=== PATIENT | female | born 1975 | race American Indian/Alaskan Native ===

== ENCOUNTER 2019-07-21 12:43 | Emergency (ER) | payer MEDICAID ==
[2019-07-21] MEDS ORDERED: Sodium Chloride 0.9% 10 ML Syringe FLUSH PRN (12:47)
[2019-07-21 13:08] VITALS: BP 125/73; PULSE 99
[2019-07-21] MEDS ORDERED: GI Cocktail Oral Solution 30 ML PO ONE (13:24)
[2019-07-21 13:33] LABS: ANION GAP 9.9 mEq/L (7-13); CHLORIDE,CL 102 mmol/L (98-107); SODIUM,NA 139 mmol/L (136-145)
--- NOTE | 2019-07-21 13:44 | CR ---
EXAMINATION: Chest 1V Frontal SEX: Female AGE: 43 years CLINICAL HISTORY: 43-year-old obese female with chest pain. INTERPRETATION: External front desk monitor leads. No acute cardiopulmonary abnormality. 1. Normal cardiac silhouette without vascular congestion, cephalization of flow, alveolar edema or dependent pleural effusion. 2. No lung mass, hilar lymphadenopathy or focal lobar infiltrate. 3. No atelectasis/collapse. 4. No pneumothorax or pneumomediastinum. 5. Bony thorax unremarkable. No free subdiaphragmatic air.
--- NOTE | 2019-07-21 13:51 | EDM.PDOC ---
ED HPI GENERAL MEDICAL PROBLEM - General Chief Complaint: Chest Pain Stated Complaint: shortness of breath/pressure in chest Time Seen by Provider: 07/21/19 13:20 Source of Information: Reports: Patient, RN, RN Notes Reviewed History Limitations: Reports: No Limitations - History of Present Illness INITIAL COMMENTS - FREE TEXT/NARRATIVE: Patient presents to ER with complaint of epigastric pain radiating up into the chest, to the left shoulder. Patient states she feels burning up the mid chest and into the throat area. Patient states she was very concerned that it could be her heart. Patient states 3 days ago she hit her head on a metal bar on playground equipment while playing with her granddaughter. States since then she has had blurred vision on and off, headaches, and has been vomiting intermittently. Patient admits to IV meth use yesterday, as well as anxiety. Patient states she has had her gallbladder removed, and has had her tubes tied. Onset: Today, Sudden Epigastric Pain Score (Numeric/FACES): 10 - Related Data Allergies Allergy/AdvReac Type Severity Reaction Status Date / Time Penicillins Allergy Hives Verified 07/21/19 13:15 Home Meds: Home Meds . 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: Musculoskeletal History: Reports: Arthritis, Back Pain, Chronic Psychiatric History: Reports: Addiction - Past Surgical History GI Surgical History: Reports: Cholecystectomy Female Surgical History: Reports: Tubal Ligation Social & Family History - Family History Family Medical History: Noncontributory - Tobacco Use Smoking Status *Q: Current Every Day Smoker Years of Tobacco use: 10 Packs/Tins Daily: 1 - Caffeine Use Caffeine Use: Reports: Soda - Alcohol Use Days Per Week of Alcohol Use: 2 Number of Drinks Per Day: 1 Total Drinks Per Week: 2 - Recreational Drug Use Recreational Drug Use: Yes Drug Use in Last 12 Months: Yes Recreational Drug Type: Reports: Methamphetamine - Living Situation & Occupation Living situation: Reports: , with Family Occupation: Unemployed ED ROS GENERAL - Review of Systems Review Of Systems: Comprehensive ROS is negative, except as noted in HPI. ED EXAM, GENERAL - Physical Exam Exam: See Below Exam Limited By: No Limitations General Appearance: Alert, WD/WN, Anxious, Mild Distress Eye Exam: Bilateral Eye: EOMI, Normal Inspection Ears: Normal External Exam, Normal Canal, Hearing Grossly Normal, Normal TMs Nose: Normal Inspection Throat/Mouth: Normal Inspection, Normal Lips, Normal Teeth, Normal Gums, Normal Oropharynx, Normal Voice, No Airway Compromise Head: Atraumatic, Normocephalic, Other (scalp tenderness) Neck: Normal Inspection, Supple, Non-Tender, Full Range of Motion Respiratory/Chest: No Respiratory Distress, Lungs Clear, Normal Breath Sounds, No Accessory Muscle Use, Chest Non-Tender Cardiovascular: Normal Peripheral Pulses, Regular Rate, Rhythm, No Edema, No Gallop, No JVD, No Murmur, No Rub Peripheral Pulses: 2+: Radial (L), Radial (R) GI/Abdominal: Normal Bowel Sounds, Soft, Non-Tender, No Organomegaly, No Distention (Female) Exam: Deferred Rectal (Female) Exam: Deferred Back Exam: Normal Inspection, Full Range of Motion, NT Extremities: Normal Inspection, Normal Range of Motion, Non-Tender, Normal Capillary Refill, No Pedal Edema Neurological: Alert, Oriented, CN II-XII Intact, Normal Cognition, Normal Gait, Normal Reflexes, No Motor/Sensory Deficits Psychiatric: Normal Affect, Normal Mood, Anxious Skin Exam: Warm, Dry, Intact, Normal Color, No Rash Lymphatic: No Adenopathy Course - Vital Signs Last Recorded V/S: Last Vital Signs Temp 98.7 F 07/21/19 13:06 Pulse 99 07/21/19 13:06 Resp 14 07/21/19 13:06 BP 125/73 07/21/19 13:06 Pulse Ox 100 07/21/19 13:06 - Orders/Labs/Meds Orders: Active Orders 24 hr Category Date Time Status EKG Documentation Completion [RC] STAT Care 07/21/19 12:47 Active Peripheral IV Care [RC] . DIRECTED Care 07/21/19 12:48 Active DRUG SCREEN URINE BIORAD [URCHEM] Stat Lab 07/21/19 12:48 Ordered UA RFX ROSAS AND CULT IF INDIC [URIN] Stat Lab 07/21/19 12:48 Ordered Sodium Chloride 0.9% [Saline Flush] Med 07/21/19 12:47 Active 10 ml FLUSH ASDIRECTED PRN Peripheral IV Insertion Adult [OM.PC] Stat Oth 07/21/19 12:48 Ordered Medication Orders Sodium Chloride (Saline Flush) 10 ml FLUSH ASDIRECTED PRN PRN Reason: Keep Vein Open Labs: Laboratory Tests 07/21/19 07/21/19 Range/Units 13:04 13:04 WBC 9.3 (5.0-10.0) 10^3/uL RBC 4.60 (4.2-5.4) 10^6/uL Hgb 12.5 (12.0-16.0) g/dL Hct 38.6 (37.0-47.0) % MCV 83.9 (80-100) fL MCH 27.2 (27.0-34.0) pg MCHC 32.4 L (33.0-35.0) g/dL Plt Count 357 (150-450) 10^3/uL Neut % (Auto) 56.7 (42.2-75.2) % Lymph % (Auto) 32.5 (20.5-50.1) % [place] % (Auto) 6.3 (2-8) % Eos % (Auto) 4.2 H (1.0-3.0) % Baso % (Auto) 0.3 (0.0-1.0) % Sodium 139 (136-145) mmol/L Potassium 3.9 (3.5-5.1) mmol/L Chloride 102 (98-107) mmol/L Carbon Dioxide 31 (21-32) mmol/L Anion Gap 9.9 (7-13) mEq/L BUN 11 (7-18) mg/dL Creatinine 0.85 (0.55-1.02) mg/dL Est Cr Clr Drug Dosing 72.17 mL/min Estimated GFR (MDRD) > 60 BUN/Creatinine Ratio 12.9 (No establ ref range) Glucose 98 (74-99) mg/dL Calcium 9.0 (8.5-10.1) mg/dL Total Bilirubin 0.7 (0.2-1.0) mg/dL AST 27 (15-37) U/L ALT 80 H (14-59) U/L Alkaline Phosphatase 79 (46-116) U/L Troponin I < 0.017 (0.000-0.056) ng/mL B-Natriuretic Peptide < 5 (0-100) pg/ml Total Protein 7.4 (6.4-8.2) g/dL Albumin 3.5 (3.4-5.0) g/dL Globulin 3.9 Albumin/Globulin Ratio 0.9 Meds: Medications Generic Name Dose Route Start Last Admin Trade Name Freq PRN Reason Stop Dose Admin Sodium Chloride 10 ml 07/21/19 12:47 Saline Flush FLUSH ASDIRECTED PRN Keep Vein Open Discontinued Medications Generic Name Dose Route Start Last Admin Trade Name Freq PRN Reason Stop Dose Admin Al Hydroxide/Mg Hydroxide 30 ml 07/21/19 13:24 07/21/19 13:31 Gi Cocktail PO 07/21/19 13:25 30 ml ONETIME ONE Administration - Radiology Interpretation Free Text/Narrative:: Chest x-ray: 1. Normal cardiac silhouette without vascular congestion, cephalization of flow , alveolar edema or dependent pleural effusion. 2. No lung mass, hilar lymphadenopathy or focal lobar infiltrate. 3. No atelectasis/collapse. 4. No pneumothorax or pneumomediastinum. 5. Bony thorax unremarkable. No free subdiaphragmatic air. Head CT: No acute findings See rad report Departure - Departure Time of Disposition: 14:19 Disposition: Home, Self-Care 01 Reason for Transfer *Q: Other Condition: Fair Clinical Impression: Acid indigestion, Anxiety, Methamphetamine abuse Concussion Qualifiers: Encounter type: initial encounter Loss of consciousness presence/duration: without LOC Qualified Code(s): S06.0X0A - Concussion without loss of consciousness, initial encounter Instructions: Indigestion, [id number], Food Choices for Gastroesophageal Reflux Disease, Adult, Kstu-zy-Ruyo, Concussion, Adult, Ycyy-qo-Cqph, Heartburn , Ujpm-hm-Pwzi, Post-Concussion Syndrome, Tdmi-qg-Dzen, Head Injury, Adult, Easy -to-Read, Nonspecific Chest Pain, Adult, Tsea-[id number], Gastroesophageal Reflux Disease, Adult, [id number] Forms: ED Department Discharge Additional Instructions: Refrain from using meth Drink plenty of water Follow food choices to avoid acid reflux Obtain a primary care provider and follow up with them RX: Omeprazole Sepsis Event Note - Evaluation Sepsis Screening Result: No Definite Risk - Focused Exam Vital Signs: Vital Signs Temp Pulse Resp BP Pulse Ox 07/21/19 13:06 98.7 F 99 14 125/73 100 Date Exam was Performed: 07/21/19 Time Exam was Performed: 14:19 - My Orders Last 24 Hours: My Active Orders 07/21/19 12:47 EKG Documentation Completion [RC] STAT Sodium Chloride 0.9% [Saline Flush] 10 ml FLUSH ASDIRECTED PRN 07/21/19 12:48 Peripheral IV Care [RC] . DIRECTED DRUG SCREEN URINE BIORAD [URCHEM] Stat UA RFX ROSAS AND CULT IF INDIC [URIN] Stat Peripheral IV Insertion Adult [OM.PC] Stat - Assessment/Plan Last 24 Hours: My Active Orders 07/21/19 12:47 EKG Documentation Completion [RC] STAT Sodium Chloride 0.9% [Saline Flush] 10 ml FLUSH ASDIRECTED PRN 07/21/19 12:48 Peripheral IV Care [RC] . DIRECTED DRUG SCREEN URINE BIORAD [URCHEM] Stat UA RFX ROSAS AND CULT IF INDIC [URIN] Stat Peripheral IV Insertion Adult [OM.PC] Stat
--- NOTE | 2019-07-21 14:09 | CT ---
EXAMINATION: Head wo Cont SEX: Female AGE: 43 years CLINICAL HISTORY: 43-year-old 184 pound female smoker with headache, blurred vision and vomiting after trauma (hit head). Scan technique: Volume acquisition of data unenhanced CT scan of the head and brain obtained with patient lying supine on the Siemens multislice scanner [place], [place]. All data archived in the PACS system for storage, reformatting axial/sagittal/coronal planes and study (bone/brain windows). Interpretation: 1. Uniformly thick bony calvarium without sign of skull fracture, underlying brain contusion or epidural/subdural hematoma. 2. Symmetric clear pneumatization of the paranasal and mastoid sinuses. Nasal septum is straight in the midline. 3. No supratentorial or posterior fossa mass lesion. Mirror-image normal ventricles. No hydrocephalus. Normal brainstem. 4. No focal areas of ischemic infarct or encephalomalacia. No cysts. 5. No sign of acute intracerebral, intraventricular, or subarachnoid bleed. CONCLUSION: Negative unenhanced CT scan head and brain. No sign of fracture, brain contusion or epi/subdural hematoma.
== END 2019-07-21 14:28 | disposition home or self-care (01) ==
LOC: DL.ED 12:43
DX: S06.0X0A Concussion without loss of consciousness, initial encounter (principal); F41.9 Anxiety disorder, unspecified; F15.10 Other stimulant abuse, uncomplicated; F17.210 Nicotine dependence, cigarettes, uncomplicated; K21.9 Gastro-esophageal reflux disease without esophagitis; Z88.0 Allergy status to penicillin; W22.8XXA Striking against or struck by other objects, initial encounter
CPT/HCPCS: 36415; 70450; 71045; 80053; 83880; 84484; 85025; 93005; 99285; A9270

== ENCOUNTER 2020-07-01 11:37 | Emergency (ER) | payer SELFPAY ==
[2020-07-01 11:40] VITALS: BP 124/55; PULSE 89
--- NOTE | 2020-07-01 12:08 | EDM.PDOC ---
ED HPI GENERAL MEDICAL PROBLEM - General Chief Complaint: Abdominal Pain Stated Complaint: AMBULANCE Time Seen by Provider: 07/01/20 11:57 Source of Information: Reports: Patient History Limitations: Reports: No Limitations - History of Present Illness INITIAL COMMENTS - FREE TEXT/NARRATIVE: This 44 yo female patient was brought to the ED by [facility] due to hitting her right upper quadrant on her bedpost this morning at 0400. The patient reports after hitting her abdomen, she felt a "warm" sensation running from the right upper quadrant to her right lower chest. The patient reports she has not taken anything for her current symptoms. The patient initially could not remember that she had her gallbladder removed, but does report she did have her "tubes tied". Onset: Today Onset Date: 07/01/20 Onset Time: 04:00 Duration: Constant (RUQ) Quality: Reports: Ache, Dull Severity: Moderate Improves with: Reports: Rest Worsens with: Reports: Movement Context: Reports: Activity Associated Symptoms: Reports: No Other Symptoms Abdominal Pain Score (Numeric/FACES): 8 - Related Data Allergies Allergy/AdvReac Type Severity Reaction Status Date / Time Penicillins Allergy Hives Verified 07/01/20 11:48 Home Meds: Home Meds . 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: Musculoskeletal History: Reports: Arthritis, Back Pain, Chronic Neurological History: Reports: None Psychiatric History: Reports: Addiction Endocrine/Metabolic History: Reports: None Hematologic History: Reports: None Immunologic History: Reports: None Oncologic (Cancer) History: Reports: None Dermatologic History: Reports: None - Infectious Disease History Infectious Disease History: Reports: None - Past Surgical History Head Surgeries/Procedures: Reports: None GI Surgical History: Reports: Cholecystectomy Female Surgical History: Reports: Tubal Ligation Social & Family History - Family History Family Medical History: No Pertinent Family History - Tobacco Use Tobacco Use Status *Q: Current Every Day Tobacco User Years of Tobacco use: 10 Packs/Tins Daily: 0.5 - Caffeine Use Caffeine Use: Reports: Coffee, Soda - Recreational Drug Use Recreational Drug Use: No - Living Situation & Occupation Living situation: Reports: , with Family Occupation: Unemployed ED ROS GENERAL - Review of Systems Review Of Systems: Comprehensive ROS is negative, except as noted in HPI. ED EXAM, GI/ABD - Physical Exam Exam: See Below Exam Limited By: No Limitations General Appearance: Alert, WD/WN, Mild Distress Eyes: Bilateral: Normal Appearance, EOMI Ears: Normal External Exam, Normal Canal, Hearing Grossly Normal, Normal TMs Nose: Normal Inspection, Normal Mucosa, No Blood Throat/Mouth: Normal Inspection, Normal Lips, Normal Teeth, Normal Gums, Normal Oropharynx, Normal Voice, No Airway Compromise Head: Atraumatic, Normocephalic Neck: Normal Inspection, Supple, Non-Tender, Full Range of Motion Respiratory/Chest: No Respiratory Distress, Lungs Clear, Normal Breath Sounds, No Accessory Muscle Use, Chest Non-Tender Cardiovascular: Normal Peripheral Pulses, Regular Rate, Rhythm, No Edema, No Gallop, No JVD, No Murmur, No Rub GI/Abdominal Exam: Normal Bowel Sounds, Soft, Tender (To RUQ directly over s urgical wound site.) (Female) Exam: Deferred Rectal (Female) Exam: Deferred Back Exam: Normal Inspection, Full Range of Motion, NT Extremities: Normal Inspection, Normal Range of Motion, Non-Tender, Normal Capillary Refill, No Pedal Edema Neurological: Alert, Oriented, CN II-XII Intact, Normal Cognition, Normal Gait, Normal Reflexes, No Motor/Sensory Deficits Psychiatric: Normal Affect, Normal Mood Skin Exam: Warm, Dry, Intact, Normal Color, No Rash Lymphatic: No Adenopathy Course - Vital Signs Last Recorded V/S: Last Vital Signs Temp 36.9 C 07/01/20 11:39 Pulse 89 07/01/20 11:39 Resp 20 07/01/20 11:39 BP 124/55 L 07/01/20 11:39 Pulse Ox 100 07/01/20 11:39 - Orders/Labs/Meds Labs: Laboratory Tests 07/01/20 07/01/20 07/01/20 Range/Units 12:08 12:08 13:18 WBC 10.1 H (5.0-10.0) 10^3/uL RBC 5.01 (4.2-5.4) 10^6/uL Hgb 13.4 (12.0-16.0) g/dL Hct 41.9 (37.0-47.0) % MCV 83.6 (80-100) fL MCH 26.7 L (27.0-34.0) pg MCHC 32.0 L (33.0-35.0) g/dL Plt Count 338 (150-450) 10^3/uL Neut % (Auto) 54.7 (42.2-75.2) % Lymph % (Auto) 30.6 (20.5-50.1) % Gage % (Auto) 8.5 H (2-8) % Eos % (Auto) 6.1 H (1.0-3.0) % Baso % (Auto) 0.1 (0.0-1.0) % Sodium 141 (136-145) mmol/L Potassium 3.6 (3.5-5.1) mmol/L Chloride 105 (98-107) mmol/L Carbon Dioxide 25 (21-32) mmol/L Anion Gap 14.6 H (7-13) mEq/L BUN 17 (7-18) mg/dL Creatinine 0.93 (0.55-1.02) mg/dL Est Cr Clr Drug Dosing 68.01 mL/min Estimated GFR (MDRD) > 60 BUN/Creatinine Ratio 18.3 (No establ ref range) Glucose 94 (74-99) mg/dL Calcium 8.4 L (8.5-10.1) mg/dL Total Bilirubin 0.6 (0.2-1.0) mg/dL AST 23 (15-37) U/L ALT 71 H (14-59) U/L Alkaline Phosphatase 79 (46-116) U/L Total Protein 7.7 (6.4-8.2) g/dL Albumin 3.5 (3.4-5.0) g/dL Globulin 4.2 Albumin/Globulin Ratio 0.8 Amylase 43 (25-115) U/L Lipase 83 (73-393) U/L Urine Color Yellow (YELLOW) Urine Appearance Clear (CLEAR) Urine pH 6.0 (5.0-9.0) Ur Specific [place] >= 1.030 (1.005-1.030) Urine Protein Negative (NEGATIVE) Urine Glucose (UA) Negative (NEGATIVE) Urine Ketones Negative (NEGATIVE) Urine Occult Blood Negative (NEGATIVE) Urine Nitrite Negative (NEGATIVE) Urine Bilirubin Negative (NEGATIVE) Urine Urobilinogen 0.2 (0.2-1.0) mg/dL Ur Leukocyte Esterase Negative (NEGATIVE) Urine Opiates Screen (NEGATIVE) Ur Oxycodone Screen (NEGATIVE) Urine Methadone Screen (NEGATIVE) Ur Barbiturates Screen (NEGATIVE) U Tricyclic Antidepress (NEGATIVE) Ur Phencyclidine Scrn (NEGATIVE) Ur Amphetamine Screen (NEGATIVE) U Methamphetamines Scrn (NEGATIVE) Urine MDMA Screen (NEGATIVE) U Benzodiazepines Scrn (NEGATIVE) Urine Cocaine Screen (NEGATIVE) U Marijuana (THC) Screen (NEGATIVE) 07/01/20 Range/Units 13:18 WBC (5.0-10.0) 10^3/uL RBC (4.2-5.4) 10^6/uL Hgb (12.0-16.0) g/dL Hct (37.0-47.0) % MCV (80-100) fL MCH (27.0-34.0) pg MCHC (33.0-35.0) g/dL Plt Count (150-450) 10^3/uL Neut % (Auto) (42.2-75.2) % Lymph % (Auto) (20.5-50.1) % Gage % (Auto) (2-8) % Eos % (Auto) (1.0-3.0) % Baso % (Auto) (0.0-1.0) % Sodium (136-145) mmol/L Potassium (3.5-5.1) mmol/L Chloride (98-107) mmol/L Carbon Dioxide (21-32) mmol/L Anion Gap (7-13) mEq/L BUN (7-18) mg/dL Creatinine (0.55-1.02) mg/dL Est Cr Clr Drug Dosing mL/min Estimated GFR (MDRD) BUN/Creatinine Ratio (No establ ref range) Glucose (74-99) mg/dL Calcium (8.5-10.1) mg/dL Total Bilirubin (0.2-1.0) mg/dL AST (15-37) U/L ALT (14-59) U/L Alkaline Phosphatase (46-116) U/L Total Protein (6.4-8.2) g/dL Albumin (3.4-5.0) g/dL Globulin Albumin/Globulin Ratio Amylase (25-115) U/L Lipase (73-393) U/L Urine Color (YELLOW) Urine Appearance (CLEAR) Urine pH (5.0-9.0) Ur Specific [place] (1.005-1.030) Urine Protein (NEGATIVE) Urine Glucose (UA) (NEGATIVE) Urine Ketones (NEGATIVE) Urine Occult Blood (NEGATIVE) Urine Nitrite (NEGATIVE) Urine Bilirubin (NEGATIVE) Urine Urobilinogen (0.2-1.0) mg/dL Ur Leukocyte Esterase (NEGATIVE) Urine Opiates Screen Negative (NEGATIVE) Ur Oxycodone Screen Negative (NEGATIVE) Urine Methadone Screen Negative (NEGATIVE) Ur Barbiturates Screen Negative (NEGATIVE) U Tricyclic Antidepress Negative (NEGATIVE) Ur Phencyclidine Scrn Negative (NEGATIVE) Ur Amphetamine Screen Negative (NEGATIVE) U Methamphetamines Scrn Positive H (NEGATIVE) Urine MDMA Screen Positive H (NEGATIVE) U Benzodiazepines Scrn Negative (NEGATIVE) Urine Cocaine Screen Negative (NEGATIVE) U Marijuana (THC) Screen Negative (NEGATIVE) - Re-Assessments/Exams Free Text/Narrative Re-Assessment/Exam: 07/01/20 13:43 Prior to advising the patient of her lab results and further testing to be o rdered. The patient left the ED. Nursing staff followed after the patient to attempt to get the patient to return to the ED to have her IV removed. Nursing staff eventually removed the IV in the hallway prior to the patient leaving the hospital. Departure - Departure Time of Disposition: 13:45 Disposition: Against Medical Advice 07 Condition: Undetermined Clinical Impression: Left against medical advice Abdominal pain Qualifiers: Abdominal location: right upper quadrant Qualified Code(s): R10.11 - Right upper quadrant pain - Discharge Information Forms: ED Department Discharge Care Plan Goals: The patient left the ED prior to any lab results given to the patient or further testing done. Sepsis Event Note (ED) - Evaluation Sepsis Screening Result: No Definite Risk - Focused Exam Vital Signs: Vital Signs Temp Pulse Resp BP Pulse Ox 07/01/20 11:39 36.9 C 89 20 124/55 L 100
[2020-07-01 13:29] LABS: ANION GAP 14.6 mEq/L (7-13); CHLORIDE,CL 105 mmol/L (98-107); SODIUM,NA 141 mmol/L (136-145)
== END 2020-07-01 13:43 | disposition left against medical advice (07) ==
LOC: DL.ED 11:37
DX: R10.11 Right upper quadrant pain (principal); Z88.0 Allergy status to penicillin; Z72.0 Tobacco use
CPT/HCPCS: 36415; 80053; 80305-QW; 81003; 82150; 83690; 85025; 99283; 99284

== ENCOUNTER 2021-02-20 19:07 | Emergency (ER) | payer SELFPAY ==
[2021-02-20 19:07] LABS: AMPHETAMINES,URINE POSITIVE (NEGATIVE); BARBITURATES,URINE NEGATIVE (NEGATIVE); BENZODIAZEPINE,URINE NEGATIVE (NEGATIVE); MDMA (ECSTASY), URINE NEGATIVE (NEGATIVE); METHADONE,URINE NEGATIVE (NEGATIVE); METHAMPHETAMINES,URINE POSITIVE (NEGATIVE); OPIATES,URINE NEGATIVE (NEGATIVE); OXYCODONE,URINE NEGATIVE (NEGATIVE); PHENCYCLIDINE,URINE NEGATIVE (NEGATIVE); TCA,URINE NEGATIVE (NEGATIVE)
[~2021-02-20 19:07] MED LIST: 50% Dextrose in Water 50 ML Syringe ONE; LORazepam 2 MG/ML SDV ONE
[2021-02-20] MEDS ORDERED: Rocuronium 100 MG/10 ML MDV IV ONE (19:08)
[2021-02-20] MEDS ORDERED: Propofol 200 MG/20 ML SDV IV ONE (19:08)
[2021-02-20] MEDS ORDERED: Propofol 1,000 MG/100 ML SDV IV ONE (19:08)
[2021-02-20] MEDS ORDERED: Naloxone 2 MG/2 ML Syringe IVPUSH ONE (19:14)
--- NOTE | 2021-02-20 19:23 | EDM.PDOC ---
ED HPI GENERAL MEDICAL PROBLEM - General Chief Complaint: Behavioral/Psych Stated Complaint: AMBULANCE Time Seen by Provider: 02/20/21 19:10 Source of Information: Reports: EMS History Limitations: Reports: Altered Mental Status - History of Present Illness INITIAL COMMENTS - FREE TEXT/NARRATIVE: Patient seen on arrival 1850. Arrival [facility]. Patient found at same house as earlier overdoses. EMS reported patient not seen at house when there for other. Was found unresponsive cool "hypoxic" EMS placed nasal trumpet. IO placed. Initial blood sugar on scene 36. No obvious signs of trauma. EMS reported suicide note by patient. D 10 enroute to hospital via IO. Pupils constricted. Equal. Initial blood glucose in ED "low" D50 administered seizure like activity , stiffening vs decorticate posturing, IV ativan, with cessation of tremor and posturing - Related Data Allergies Allergy/AdvReac Type Severity Reaction Status Date / Time Penicillins Allergy Hives Verified 07/01/20 11:48 Home Meds: Home Meds . 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 - Physical Exam Exam: See Below Exam Limited By: Altered Mental Status General Appearance: Obtunded, Obese Eye Exam: Bilateral Eye: Other (pupils constricted) Ears: Normal External Exam, Normal Canal, Hearing Grossly Normal, Normal TMs Nose: Normal Mucosa, Other (trumpet) Throat/Mouth: Normal Oropharynx, Other Head Exam: Atraumatic, Normocephalic Neck: Normal Inspection Respiratory/Chest: No Respiratory Distress GI/Abdominal: Normal Bowel Sounds, Soft Neuro Exam (Abbreviated): Unresponsive Back Exam: Normal Inspection Extremities: Normal Capillary Refill Skin Exam: Dry, Cool, Ecchymosis (left side of neck faint bruising), Other (IO right anterior lower leg per EMS, site with mild swelling at insertion site. ) #1 Interpretation EKG Date: 02/20/21 Time: 19:20 Rhythm: NSR Rate (Beats/Min): 106 P-Wave: Present QRS: Normal ST-T: Normal Comparison: NA - No Prior EKG Course - Vital Signs Last Recorded V/S: Last Vital Signs Temp 96.2 F L 02/20/21 18:57 Pulse 87 02/20/21 18:57 Resp 26 H 02/20/21 18:57 BP 222/202 H 02/20/21 18:57 Pulse Ox 97 02/20/21 18:57 - Orders/Labs/Meds Labs: Laboratory Tests 02/20/21 02/20/21 02/20/21 Range/Units 18:50 18:50 18:50 WBC 14.8 H (5.0-10.0) 10^3/uL RBC 5.21 (4.2-5.4) 10^6/uL Hgb 14.4 (12.0-16.0) g/dL Hct 44.1 (37.0-47.0) % MCV 84.6 (80-100) fL MCH 27.6 (27.0-34.0) pg MCHC 32.7 L (33.0-35.0) g/dL Plt Count 419 D (150-450) 10^3/uL Neut % (Auto) 79.6 H (42.2-75.2) % Lymph % (Auto) 13.8 L (20.5-50.1) % [place] % (Auto) 6.4 (2-8) % Eos % (Auto) 0.1 L (1.0-3.0) % Baso % (Auto) 0.1 (0.0-1.0) % Sodium (136-145) mmol/L Potassium (3.5-5.1) mmol/L Chloride (98-107) mmol/L Carbon Dioxide (21-32) mmol/L Anion Gap (7-13) mEq/L BUN (7-18) mg/dL Creatinine (0.55-1.02) mg/dL Est Cr Clr Drug Dosing Estimated GFR (MDRD) BUN/Creatinine Ratio (No establ ref range) Glucose (70-99) mg/dL POC Glucose (70-99) mg/dL Lactic Acid (0.4-2.0) mmol/L Calcium (8.5-10.1) mg/dL Magnesium (1.8-2.4) mg/dL Total Bilirubin (0.2-1.0) mg/dL AST (15-37) U/L ALT (14-59) U/L Alkaline Phosphatase (46-116) U/L Ammonia (11-32) umol/L Troponin I High Sens (<=51) pg/mL C-Reactive Protein (0.0-0.9) mg/dL Total Protein (6.4-8.2) g/dL Albumin (3.4-5.0) g/dL Globulin Albumin/Globulin Ratio Amylase (25-115) U/L Lipase (73-393) U/L Urine Color Dark yellow (YELLOW) Urine Appearance Clear (CLEAR) Urine pH 6.0 (5.0-9.0) Ur Specific [place] >= 1.030 (1.005-1.030) Urine Protein 30 H (NEGATIVE) Urine Glucose (UA) Negative (NEGATIVE) Urine Ketones Trace H (NEGATIVE) Urine Occult Blood Negative (NEGATIVE) Urine Nitrite Negative (NEGATIVE) Urine Bilirubin Small H (NEGATIVE) Urine Urobilinogen 0.2 (0.2-1.0) mg/dL Ur Leukocyte Esterase Negative (NEGATIVE) U Hyaline Cast (Auto) Few Urine RBC 0-5 (0-5) /HPF Urine WBC 0-5 (0-5/HPF) /HPF Ur Epithelial Cells Few (NOT SEEN) /HPF Urine Mucus Many H (NOT SEEN) /LPF Urine HCG, Qual Urine Opiates Screen Negative (NEGATIVE) Ur Oxycodone Screen Negative (NEGATIVE) Urine Methadone Screen Negative (NEGATIVE) Ur Barbiturates Screen Negative (NEGATIVE) U Tricyclic Antidepress Negative (NEGATIVE) Ur Phencyclidine Scrn Negative (NEGATIVE) Ur Amphetamine Screen Positive H (NEGATIVE) U Methamphetamines Scrn Positive H (NEGATIVE) Urine MDMA Screen Negative (NEGATIVE) U Benzodiazepines Scrn Negative (NEGATIVE) Urine Cocaine Screen Negative (NEGATIVE) U Marijuana (THC) Screen Negative (NEGATIVE) Ethyl Alcohol (0) mg/dL SARS CoV-2 RNA Rapid RUBY (NEGATIVE) 02/20/21 02/20/21 02/20/21 Range/Units 18:50 18:50 18:50 WBC (5.0-10.0) 10^3/uL RBC (4.2-5.4) 10^6/uL Hgb (12.0-16.0) g/dL Hct (37.0-47.0) % MCV (80-100) fL MCH (27.0-34.0) pg MCHC (33.0-35.0) g/dL Plt Count (150-450) 10^3/uL Neut % (Auto) (42.2-75.2) % Lymph % (Auto) (20.5-50.1) % [place] % (Auto) (2-8) % Eos % (Auto) (1.0-3.0) % Baso % (Auto) (0.0-1.0) % Sodium 141 (136-145) mmol/L Potassium 3.5 (3.5-5.1) mmol/L Chloride 105 (98-107) mmol/L Carbon Dioxide 28 (21-32) mmol/L Anion Gap 11.5 (7-13) mEq/L BUN 12 (7-18) mg/dL Creatinine 0.84 (0.55-1.02) mg/dL Est Cr Clr Drug Dosing TNP Estimated GFR (MDRD) > 60 BUN/Creatinine Ratio 14.3 (No establ ref range) Glucose 13 L* (70-99) mg/dL POC Glucose (70-99) mg/dL Lactic Acid 2.5 H* (0.4-2.0) mmol/L Calcium 8.9 (8.5-10.1) mg/dL Magnesium 2.2 (1.8-2.4) mg/dL Total Bilirubin 0.5 (0.2-1.0) mg/dL AST 29 (15-37) U/L ALT 104 H (14-59) U/L Alkaline Phosphatase 106 (46-116) U/L Ammonia 14 (11-32) umol/L Troponin I High Sens 39 (<=51) pg/mL C-Reactive Protein < 0.2 (0.0-0.9) mg/dL Total Protein 7.8 (6.4-8.2) g/dL Albumin 3.4 (3.4-5.0) g/dL Globulin 4.4 Albumin/Globulin Ratio 0.8 Amylase 55 (25-115) U/L Lipase 88 (73-393) U/L Urine Color (YELLOW) Urine Appearance (CLEAR) Urine pH (5.0-9.0) Ur Specific [place] (1.005-1.030) Urine Protein (NEGATIVE) Urine Glucose (UA) (NEGATIVE) Urine Ketones (NEGATIVE) Urine Occult Blood (NEGATIVE) Urine Nitrite (NEGATIVE) Urine Bilirubin (NEGATIVE) Urine Urobilinogen (0.2-1.0) mg/dL Ur Leukocyte Esterase (NEGATIVE) U Hyaline Cast (Auto) Urine RBC (0-5) /HPF Urine WBC (0-5/HPF) /HPF Ur Epithelial Cells (NOT SEEN) /HPF Urine Mucus (NOT SEEN) /LPF Urine HCG, Qual Urine Opiates Screen (NEGATIVE) Ur Oxycodone Screen (NEGATIVE) Urine Methadone Screen (NEGATIVE) Ur Barbiturates Screen (NEGATIVE) U Tricyclic Antidepress (NEGATIVE) Ur Phencyclidine Scrn (NEGATIVE) Ur Amphetamine Screen (NEGATIVE) U Methamphetamines Scrn (NEGATIVE) Urine MDMA Screen (NEGATIVE) U Benzodiazepines Scrn (NEGATIVE) Urine Cocaine Screen (NEGATIVE) U Marijuana (THC) Screen (NEGATIVE) Ethyl Alcohol < 3 (0) mg/dL SARS CoV-2 RNA Rapid RUBY (NEGATIVE) 02/20/21 02/20/21 02/20/21 Range/Units 18:51 18:56 18:57 WBC (5.0-10.0) 10^3/uL RBC (4.2-5.4) 10^6/uL Hgb (12.0-16.0) g/dL Hct (37.0-47.0) % MCV (80-100) fL MCH (27.0-34.0) pg MCHC (33.0-35.0) g/dL Plt Count (150-450) 10^3/uL Neut % (Auto) (42.2-75.2) % Lymph % (Auto) (20.5-50.1) % [place] % (Auto) (2-8) % Eos % (Auto) (1.0-3.0) % Baso % (Auto) (0.0-1.0) % Sodium (136-145) mmol/L Potassium (3.5-5.1) mmol/L Chloride (98-107) mmol/L Carbon Dioxide (21-32) mmol/L Anion Gap (7-13) mEq/L BUN (7-18) mg/dL Creatinine (0.55-1.02) mg/dL Est Cr Clr Drug Dosing Estimated GFR (MDRD) BUN/Creatinine Ratio (No establ ref range) Glucose (70-99) mg/dL POC Glucose < 10 L* 216 H (70-99) mg/dL Lactic Acid (0.4-2.0) mmol/L Calcium (8.5-10.1) mg/dL Magnesium (1.8-2.4) mg/dL Total Bilirubin (0.2-1.0) mg/dL AST (15-37) U/L ALT (14-59) U/L Alkaline Phosphatase (46-116) U/L Ammonia (11-32) umol/L Troponin I High Sens (<=51) pg/mL C-Reactive Protein (0.0-0.9) mg/dL Total Protein (6.4-8.2) g/dL Albumin (3.4-5.0) g/dL Globulin Albumin/Globulin Ratio Amylase (25-115) U/L Lipase (73-393) U/L Urine Color (YELLOW) Urine Appearance (CLEAR) Urine pH (5.0-9.0) Ur Specific [place] (1.005-1.030) Urine Protein (NEGATIVE) Urine Glucose (UA) (NEGATIVE) Urine Ketones (NEGATIVE) Urine Occult Blood (NEGATIVE) Urine Nitrite (NEGATIVE) Urine Bilirubin (NEGATIVE) Urine Urobilinogen (0.2-1.0) mg/dL Ur Leukocyte Esterase (NEGATIVE) U Hyaline Cast (Auto) Urine RBC (0-5) /HPF Urine WBC (0-5/HPF) /HPF Ur Epithelial Cells (NOT SEEN) /HPF Urine Mucus (NOT SEEN) /LPF Urine HCG, Qual Negative Urine Opiates Screen (NEGATIVE) Ur Oxycodone Screen (NEGATIVE) Urine Methadone Screen (NEGATIVE) Ur Barbiturates Screen (NEGATIVE) U Tricyclic Antidepress (NEGATIVE) Ur Phencyclidine Scrn (NEGATIVE) Ur Amphetamine Screen (NEGATIVE) U Methamphetamines Scrn (NEGATIVE) Urine MDMA Screen (NEGATIVE) U Benzodiazepines Scrn (NEGATIVE) Urine Cocaine Screen (NEGATIVE) U Marijuana (THC) Screen (NEGATIVE) Ethyl Alcohol (0) mg/dL SARS CoV-2 RNA Rapid RUBY (NEGATIVE) 02/20/21 02/20/21 Range/Units 19:08 19:22 WBC (5.0-10.0) 10^3/uL RBC (4.2-5.4) 10^6/uL Hgb (12.0-16.0) g/dL Hct (37.0-47.0) % MCV (80-100) fL MCH (27.0-34.0) pg MCHC (33.0-35.0) g/dL Plt Count (150-450) 10^3/uL Neut % (Auto) (42.2-75.2) % Lymph % (Auto) (20.5-50.1) % [place] % (Auto) (2-8) % Eos % (Auto) (1.0-3.0) % Baso % (Auto) (0.0-1.0) % Sodium (136-145) mmol/L Potassium (3.5-5.1) mmol/L Chloride (98-107) mmol/L Carbon Dioxide (21-32) mmol/L Anion Gap (7-13) mEq/L BUN (7-18) mg/dL Creatinine (0.55-1.02) mg/dL Est Cr Clr Drug Dosing Estimated GFR (MDRD) BUN/Creatinine Ratio (No establ ref range) Glucose (70-99) mg/dL POC Glucose 114 H (70-99) mg/dL Lactic Acid (0.4-2.0) mmol/L Calcium (8.5-10.1) mg/dL Magnesium (1.8-2.4) mg/dL Total Bilirubin (0.2-1.0) mg/dL AST (15-37) U/L ALT (14-59) U/L Alkaline Phosphatase (46-116) U/L Ammonia (11-32) umol/L Troponin I High Sens (<=51) pg/mL C-Reactive Protein (0.0-0.9) mg/dL Total Protein (6.4-8.2) g/dL Albumin (3.4-5.0) g/dL Globulin Albumin/Globulin Ratio Amylase (25-115) U/L Lipase (73-393) U/L Urine Color (YELLOW) Urine Appearance (CLEAR) Urine pH (5.0-9.0) Ur Specific [place] (1.005-1.030) Urine Protein (NEGATIVE) Urine Glucose (UA) (NEGATIVE) Urine Ketones (NEGATIVE) Urine Occult Blood (NEGATIVE) Urine Nitrite (NEGATIVE) Urine Bilirubin (NEGATIVE) Urine Urobilinogen (0.2-1.0) mg/dL Ur Leukocyte Esterase (NEGATIVE) U Hyaline Cast (Auto) Urine RBC (0-5) /HPF Urine WBC (0-5/HPF) /HPF Ur Epithelial Cells (NOT SEEN) /HPF Urine Mucus (NOT SEEN) /LPF Urine HCG, Qual Urine Opiates Screen (NEGATIVE) Ur Oxycodone Screen (NEGATIVE) Urine Methadone Screen (NEGATIVE) Ur Barbiturates Screen (NEGATIVE) U Tricyclic Antidepress (NEGATIVE) Ur Phencyclidine Scrn (NEGATIVE) Ur Amphetamine Screen (NEGATIVE) U Methamphetamines Scrn (NEGATIVE) Urine MDMA Screen (NEGATIVE) U Benzodiazepines Scrn (NEGATIVE) Urine Cocaine Screen (NEGATIVE) U Marijuana (THC) Screen (NEGATIVE) Ethyl Alcohol (0) mg/dL SARS CoV-2 RNA Rapid RUBY Negative (NEGATIVE) Meds: Medications Discontinued Medications Generic Name Dose Route Start Last Admin Trade Name Krissy PRN Reason Stop Dose Admin Dextrose/Water Confirm 02/20/21 18:53 02/20/21 18:53 50% Dextrose In Water 50 Ml Syringe Administered 02/20/21 18:54 50 ml Dose Administration 50 ml .ROUTE .STK-MED ONE Dextrose/Water 50 ml 02/20/21 19:28 02/20/21 19:31 50% Dextrose In Water 50 Ml Syringe IVPUSH 02/20/21 19:29 Not Given ONETIME ONE Lorazepam Confirm 02/20/21 18:51 02/20/21 19:31 Lorazepam 2 Mg/Ml Sdv Administered 02/20/21 18:52 Not Given Dose 2 mg .ROUTE .STK-MED ONE Lorazepam 2 mg 02/20/21 19:28 02/20/21 18:52 Lorazepam 2 Mg/Ml Sdv IVPUSH 02/20/21 19:29 2 mg ONETIME ONE Administration Naloxone HCl 2 mg 02/20/21 19:14 02/20/21 18:58 Naloxone 2 Mg/2 Ml Syringe IVPUSH 02/20/21 19:15 2 mg ONETIME ONE Administration - Re-Assessments/Exams Free Text/Narrative Re-Assessment/Exam: 02/21/21 06:[address] Anders, accepting patient for tx , transfer via [facility]. . 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 Slight bruising appearing on left side of neck. Minimal response to Narcan ( 4mg per EMS, 2Mg IV in ED on arrival)Kicking but non purposeful responses. Departure - Departure Time of Disposition: 20:10 Disposition: DC/Tfer to Acute Hospital 02 Condition: Poor Clinical Impression: Drug abuse, Hypoglycemia Overdose Qualifiers: Encounter type: initial encounter Injury intent: undetermined intent Qualified Code(s): T50.904A - Poisoning by unspecified drugs, medicaments and biological substances, undetermined, initial encounter - Discharge Information *PRESCRIPTION DRUG MONITORING PROGRAM REVIEWED*: No *COPY OF PRESCRIPTION DRUG MONITORING REPORT IN PATIENT ELHAM: No Referrals: PCP,None [Primary Care Provider] - Forms: ED Department Discharge
[2021-02-20 19:26] LABS: ANION GAP 11.5 mEq/L (7-13); CHLORIDE,CL 105 mmol/L (98-107); SODIUM,NA 141 mmol/L (136-145)
[2021-02-20] MEDS ORDERED: LORazepam 2 MG/ML SDV IVPUSH ONE (19:28)
[2021-02-20] MEDS ORDERED: 50% Dextrose in Water 50 ML Syringe IVPUSH ONE (19:28)
[2021-02-20 19:42] VITALS: BP 222/202; PULSE 87
--- NOTE | 2021-02-20 20:47 | CR ---
PROCEDURE INFORMATION: Exam: XR Chest Exam date and time: 02/20/2021 7:11 PM Age: 45 years old Clinical indication: Other: Overdose--tube placement; Additional info: Ett placement verification TECHNIQUE: Imaging protocol: XR of the chest. Views: 1 view. Total images: 1 COMPARISON: CR Chest 1V Frontal 07/21/2019 1:18 PM FINDINGS: Tubes, catheters and devices: NG tube in stomach. Tip of the endotracheal tube approximately 1.2 cm above the moises. Lungs: Lung volumes are low. Very minimal left lower lobe atelectasis. Pleural spaces: Unremarkable. No pleural effusion. No pneumothorax. Heart/Mediastinum: Unremarkable. No cardiomegaly. Bones/joints: Unremarkable. IMPRESSION: 1. Low lung volumes with minimal left lower lobe atelectasis. 2. Lines and tubes as above.
== END 2021-02-20 20:11 ==
LOC: DL.ED 19:07
DX: T50.904A Poisoning by unspecified drugs, medicaments and biological substances, undetermined, initial encounter (principal); F15.10 Other stimulant abuse, uncomplicated; E16.2 Hypoglycemia, unspecified; Z88.0 Allergy status to penicillin; Z20.822 Contact with and (suspected) exposure to COVID-19
CPT/HCPCS: 31500; 36415; 71045; 80053; 80305; 80307; 81001; 81025; 82140; 82150; 82947; 83605; 83690; 83735; 84484; 85025; 86140; 87635; 93005; 96374; 96375; 99285; J2060; J2310; J2704; U0002

== ENCOUNTER 2021-03-06 01:32 | Emergency (ER) | payer SELFPAY ==
[2021-03-06 02:01] VITALS: BP 115/85; PULSE 97
--- NOTE | 2021-03-06 02:33 | EDM.PDOC ---
ED HPI GENERAL MEDICAL PROBLEM - General Chief Complaint: Neck Problem Stated Complaint: AMBULANCE Time Seen by Provider: 03/06/21 02:00 Source of Information: Reports: Patient, EMS, Old Records, RN, RN Notes Reviewed History Limitations: Reports: No Limitations - History of Present Illness INITIAL COMMENTS - FREE TEXT/NARRATIVE: Tyesha is a 45 y/o female who presents to the ED via [facility] with complaints of neck pain. The patient reports her symptoms began approximately one hour ago with pressure-like pain diffuse to her anterior and posterior neck. Additionally, she feels her voice is not normal and her ears feel "full." She denies recent falls and did not strike her head. The patient was discharged from [facility] two days ago following admission for overdose. She states she was diagnosed with a blood clot in her neck and was started on Eliquis; she has taken her Eliquis as prescribed since discharge. She denies throat tightness, difficulty breathing, drooling, chest pain/pressure, palpitations, shortness of breath, or dyspepsia. She denies fever, shaking chills, nausea, vomiting, or diarrhea. The patient attests to smoking 1/2 pack of cigarettes per day; she denies alcohol or recreational drug use. - Related Data Allergies Allergy/AdvReac Type Severity Reaction Status Date / Time Penicillins Allergy Hives Verified 07/01/20 11:48 Home Meds: Home Meds . 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: Musculoskeletal History: Reports: Arthritis, Back Pain, Chronic Psychiatric History: Reports: Addiction - Past Surgical History GI Surgical History: Reports: Cholecystectomy Female Surgical History: Reports: Tubal Ligation Social & Family History - Family History Family Medical History: No Pertinent Family History - Tobacco Use Tobacco Use Status *Q: Current Every Day Tobacco User Years of Tobacco use: 20 Packs/Tins Daily: 0.5 - Caffeine Use Caffeine Use: Reports: Soda - Living Situation & Occupation Living situation: Reports: , with Family Occupation: Unemployed ED ROS GENERAL - Review of Systems Review Of Systems: Comprehensive ROS is negative, except as noted in HPI. ED EXAM, UPPER BACK/NECK PAIN - Physical Exam Exam: See Below Exam Limited By: No Limitations General Appearance: Alert, No Apparent Distress Eye Exam: Bilateral Eye: EOMI, PERRL (4mm) Ears Exam: Normal External Exam, Normal Canal, Hearing Grossly Normal, Normal TMs. No: Mastoid Swelling, Mastoid Tenderness, Canal Blood, Canal Swelling, TM Bulging, TM Dullness, TM Erythema, TM Fluid Nose Exam: Normal Inspection, Normal Mucousa, No Blood Throat/Mouth Exam: Normal Inspection, Normal Lips, Normal Oropharynx, No Airway Compromise, Muffled Voice. No: Hoarse Voice, Pharyngeal Erythema, Tongue Swelling, Tonsillar Erythema, Tonsillar Exudate, Tonsillar Swelling, Uvular Deviation, Uvular Edema Head Exam: Atraumatic, Normocephalic Neck Exam: Full Range of Motion, Normal Alignment, Tender Lateral. No: Limited Range of Motion, Spinous Processes Tender, Stiff Neck, Tender Midline Cardiovascular/Respiratory: Regular Rate, Rhythm, No M/R/G, Normal Peripheral Pulses, No JVD, Normal Breath Sounds, No Respiratory Distress GI/Abdominal: Normal Bowel Sounds, Soft, Non-Tender, No Distention, No Abnormal Bruit, No Mass, Pelvis Stable (Female) Exam: Deferred Rectal (Female) Exam: Deferred Back Exam: Normal Inspection, Full Range of Motion Extremities: Normal Inspection, Normal Range of Motion, Normal Capillary Refill Neurologic: Alert, Normal Mood/Affect, Oriented x 3, Other (Garbled/slurred speech). No: Facial Droop, Motor Weakness Psychiatric: Anxious Skin Exam: Normal Color, Warm/Dry Lymphatic: No Adenopathy Course - Vital Signs Last Recorded V/S: Last Vital Signs Temp 99.1 F 03/06/21 01:58 Pulse 97 03/06/21 01:58 Resp 18 03/06/21 01:58 BP 115/85 03/06/21 01:58 Pulse Ox 97 03/06/21 01:58 - Radiology Interpretation Free Text/Narrative:: [facility] [place] [facility] Final Radiology Report Call: [phone] assistance Online chat: [email or web address] Name: TYESHA JAIN Age: 45Years F Date: 03/06/2021 SSN: -- : [id number] Study: US VENOUS DOPPLER UPR EXT RT Requesting Physician: Rupa Ibanez Images: 34 Addl Studies: Provided Clinical History: Revaluate recent DVT to right IJ, nonocclusive Contrast: Contrast Medium: Contrast Amount: Contrast Method: Page 1 of 2 PROCEDURE INFORMATION: Exam: US Duplex Right Upper Extremity Veins, Limited Exam date and time: 03/06/2021 3:00 AM Age: 45 years old Clinical indication: Pain; Other: Neck; Additional info: Revaluate recent dvt to right ij, nonocclusive TECHNIQUE: Imaging protocol: Real-time Duplex ultrasound of the Right Upper Extremity with 2-D ramirez scale, color Doppler flow and spectral waveform analysis with image documentation. Limited exam focused on the right upper extremity veins. COMPARISON: No relevant prior studies available. FINDINGS: Right deep veins: Unremarkable. Axillary and brachial veins are patent throughout without thrombus. Normal Doppler waveforms. Normal compressibility and/or augmentation response. Visualized internal jugular and subclavian veins are patent. Right superficial veins: There is occlusive thrombus in the cephalic vein. Visualized basilic vein is patent without thrombus. Soft tissues: Unremarkable. IMPRESSION: 1. No evidence of deep vein thrombosis. 2. Superficial thrombophlebitis in the right cephalic vein. Thank you for allowing us to participate in the care of your patient. Dictated and Authenticated by: Yunior Gutierrez MD 03/06/2021 4:58 AM Central Time ([place] & [place]) - Re-Assessments/Exams Free Text/Narrative Re-Assessment/Exam: 03/06/21 Patient refuses intravenous blood draw and urine. She repeatedly states she "...had blood checked at [facility], I don't need it now." Discussed importance of obtaining blood work for proper medical work-up, patient continues to refuse. 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 Given stated pain, will obtain venous Doppler of right upper extremity. Findings of examination and imaging reviewed with patient. Patient instructed to continue on Eliquis, as previously prescribed. Patient instructed to follow up with primary care provider in 3-4 days regarding todays visit. Red flag signs and symptoms which would warrant immediate reevaluation reviewed. Patient verbalized understanding and agreement with the plan of care. Departure - Departure Time of Disposition: 06:24 Disposition: Home, Self-Care 01 Condition: Good Clinical Impression: Thrombophlebitis of cephalic vein, Neck pain - Discharge Information *PRESCRIPTION DRUG MONITORING PROGRAM REVIEWED*: Not Applicable *COPY OF PRESCRIPTION DRUG MONITORING REPORT IN PATIENT ELHAM: Not Applicable Instructions: Thrombophlebitis Forms: ED Department Discharge Additional Instructions: 1.) Continue on your Eliquis, as previously prescribed. 2.) Follow up with your primary care provider in 3-4 days regarding today's visit. 3.) You may take ibuprofen (Advil/Motrin) 400mg every six hours, as pain persists. You may also take acetaminophen (Tylenol) 650-1000mg every six hours, as pain persists. You may stagger these medications so you are taking a dose of either every three hours. 4.) You may apply cold compresses to the area as pain and swelling persist, 20 minutes every hour. 5.) Return to the emergency department with any persistent or worsening symptoms despite supportive cares. Sepsis Event Note (ED) - Evaluation Sepsis Screening Result: No Definite Risk - Focused Exam Vital Signs: Vital Signs Temp Pulse Resp BP Pulse Ox 03/06/21 01:58 99.1 F 97 18 115/85 97
--- NOTE | 2021-03-06 04:58 | US ---
PROCEDURE INFORMATION: Exam: US Duplex Right Upper Extremity Veins, Limited Exam date and time: 03/06/2021 3:00 AM Age: 45 years old Clinical indication: Pain; Other: Neck; Additional info: Revaluate recent dvt to right ij, nonocclusive TECHNIQUE: Imaging protocol: Real-time Duplex ultrasound of the Right Upper Extremity with 2-D ramirez scale, color Doppler flow and spectral waveform analysis with image documentation. Limited exam focused on the right upper extremity veins. COMPARISON: No relevant prior studies available. FINDINGS: Right deep veins: Unremarkable. Axillary and brachial veins are patent throughout without thrombus. Normal Doppler waveforms. Normal compressibility and/or augmentation response. Visualized internal jugular and subclavian veins are patent. Right superficial veins: There is occlusive thrombus in the cephalic vein. Visualized basilic vein is patent without thrombus. Soft tissues: Unremarkable. IMPRESSION: 1. No evidence of deep vein thrombosis. 2. Superficial thrombophlebitis in the right cephalic vein.
== END 2021-03-06 06:55 | disposition home or self-care (01) ==
LOC: DL.ED 01:32
DX: I80.9 Phlebitis and thrombophlebitis of unspecified site (principal); M54.2 Cervicalgia; Z88.0 Allergy status to penicillin; Z72.0 Tobacco use
CPT/HCPCS: 93971; 99284-25

== ENCOUNTER 2021-07-16 14:37 | Observation (INO) | payer MEDICAID ==
[2021-07-16 15:28] LABS: AMPHETAMINES,URINE NEGATIVE (NEGATIVE); BARBITURATES,URINE NEGATIVE (NEGATIVE); BENZODIAZEPINE,URINE NEGATIVE (NEGATIVE); MDMA (ECSTASY), URINE NEGATIVE (NEGATIVE); METHADONE,URINE NEGATIVE (NEGATIVE); METHAMPHETAMINES,URINE POSITIVE (NEGATIVE); OPIATES,URINE NEGATIVE (NEGATIVE); OXYCODONE,URINE NEGATIVE (NEGATIVE); PHENCYCLIDINE,URINE NEGATIVE (NEGATIVE); TCA,URINE POSITIVE (NEGATIVE)
[2021-07-16 15:50] LABS: ANION GAP 14.3 mEq/L (7-13); CHLORIDE,CL 102 mmol/L (98-107); SODIUM,NA 138 mmol/L (136-145)
[2021-07-16 15:52] LABS: ACETAMINOPHEN 0 ug/mL (10-30 (Therapeutic))
[2021-07-16] MEDS ORDERED: Sodium Chloride 0.9% 1,000 ML IV ONE (15:57)
[2021-07-16] MEDS ORDERED: Ibuprofen 600 MG Tab PO PRN (17:50)
[2021-07-16] MEDS ORDERED: Albuterol/Ipratropium 3.0-0.5 MG/3 ML Neb Soln NEB PRN (17:50)
[2021-07-16] MEDS ORDERED: Polyethylene Glycol 3350 Powder 17 GM Packet PO PRN (17:50)
[2021-07-16] MEDS ORDERED: Ondansetron 4 MG/2 ML SDV IVPUSH PRN (17:50)
[2021-07-16] MEDS ORDERED: Bisacodyl 5 MG Tab PO PRN (17:50)
[2021-07-16] MEDS ORDERED: LORazepam 2 MG/ML SDV IVPUSH PRN (17:53)
[2021-07-16] MEDS ORDERED: Flumazenil 0.1 MG/ML 5 ML MDV IVPUSH PRN (17:53)
[2021-07-16] MEDS ORDERED: Pantoprazole 40 MG Vial IVPUSH ONE (17:54)
[2021-07-16] MEDS ORDERED: Sodium Chloride 0.9% 1,000 ML IV SCH (18:00)
[2021-07-16] MEDS ORDERED: Magnesium Sulfate/Water 2 GM in Premix Bag 1 BAG IV ONE (18:30)
[2021-07-16] MEDS ORDERED: Magnesium Sulfate/Water 50 ML ONE (19:19)
[2021-07-16] MEDS ORDERED: Pantoprazole 40 MG Vial ONE (19:19)
[2021-07-16] MEDS: Sodium Chloride 0.9% with KCl 1,000 ML IV SCH (19:32)
[2021-07-17] MEDS: Sodium Chloride 0.9% with KCl 1,000 ML IV SCH ×2 (05:32→15:30)
[2021-07-17 07:21] LABS: ANION GAP 14.1 mEq/L (7-13); CHLORIDE,CL 109 mmol/L (98-107); SODIUM,NA 143 mmol/L (136-145)
[2021-07-17] MEDS: Famotidine 20 MG Tab PO SCH ×2 (12:36→20:24)
[2021-07-17] MEDS: LORazepam 2 MG/ML SDV IVPUSH PRN ×2 (19:11→21:49)
[2021-07-17] MEDS: Ketorolac 30 MG/ML SDV IVPUSH PRN (19:12)
[2021-07-17] MEDS ORDERED: Haloperidol Lactate 5 MG/ML SDV IM PRN (19:57)
[2021-07-17] MEDS ORDERED: cloNIDine 0.1 MG Tab PO PRN (19:57)
[2021-07-17] MEDS ORDERED: MVI, Adult with Vitamin K 10 ML, Folic Acid 1 MG, Thiamine 100 MG in Lactated Ringers 1... IV ONE ×4 (19:57)
[2021-07-17] MEDS ORDERED: chlordiazePOXIDE 25 MG Cap PO ONE (20:02)
[2021-07-17] MEDS ORDERED: diphenhydrAMINE 50 MG/ML SDV IVPUSH ONE ×2 (20:02→21:08)
[2021-07-17] MEDS: Nicotine 14 MG/24 Hr Patch TRDERM SCH (20:22)
[2021-07-17] MEDS ORDERED: QUEtiapine 100 MG Tab PO ONE (21:08)
[2021-07-17] MEDS: Check NICOTINE Patch TRDERM SCH (21:17)
[2021-07-18] MEDS: LORazepam 2 MG/ML SDV IVPUSH PRN (02:23)
[2021-07-18 06:17] LABS: CHLORIDE,CL 107 mmol/L (98-107); SODIUM,NA 141 mmol/L (136-145)
[2021-07-18] MEDS: Famotidine 20 MG Tab PO SCH ×2 (09:10→21:42)
[2021-07-18] MEDS: Multivitamin Tab PO SCH (09:11)
[2021-07-18] MEDS: Folic Acid 1 MG Tab PO SCH (09:11)
[2021-07-18] MEDS: Nicotine 14 MG/24 Hr Patch TRDERM SCH (09:11)
[2021-07-18] MEDS: Thiamine 100 MG Tab PO SCH (09:11)
[2021-07-18] MEDS: Acetaminophen 325 MG Tab PO PRN (15:31)
[2021-07-18] MEDS ORDERED: Acetaminophen 500 MG Tab PO PRN (20:33)
[2021-07-18] MEDS: Ketorolac 30 MG/ML SDV IVPUSH PRN (20:34)
[2021-07-18] MEDS ORDERED: diphenhydrAMINE 50 MG/ML SDV IVPUSH ONE (20:35)
[2021-07-18] MEDS ORDERED: QUEtiapine 100 MG Tab PO SCH (21:00)
[2021-07-18] MEDS ORDERED: Melatonin 3 MG Tab PO SCH (21:00)
[2021-07-18] MEDS: Gabapentin 300 MG Cap PO SCH (21:41)
[2021-07-18] MEDS: Apixaban 5 MG Tab PO SCH (21:41)
[2021-07-18] MEDS: Check NICOTINE Patch TRDERM SCH (21:50)
[2021-07-19 06:31] LABS: ANION GAP 13.7 mEq/L (7-13); CHLORIDE,CL 106 mmol/L (98-107); SODIUM,NA 142 mmol/L (136-145)
[2021-07-19] MEDS: Folic Acid 1 MG Tab PO SCH (08:38)
[2021-07-19] MEDS: Gabapentin 300 MG Cap PO SCH ×2 (08:38→12:35)
[2021-07-19] MEDS: Multivitamin Tab PO SCH (08:38)
[2021-07-19] MEDS: Thiamine 100 MG Tab PO SCH (08:39)
[2021-07-19] MEDS: Apixaban 5 MG Tab PO SCH (08:39)
[2021-07-19] MEDS: Famotidine 20 MG Tab PO SCH (08:39)
[2021-07-19] MEDS ORDERED: Non-Formulary Medication 1 Each (Magnesium Oxide [Magnesium Oxide] 400 MG Tablet) PO SCH (09:00)
[2021-07-19] MEDS ORDERED: buPROPion 150 MG Tab.SR PO SCH (09:00)
[2021-07-19] MEDS ORDERED: Omeprazole 20 MG Cap.CR PO SCH (09:00)
[2021-07-19] MEDS ORDERED: Cholecalciferol (Vitamin D3) 25 MCG Tab PO SCH (09:00)
[2021-07-19] MEDS: Acetaminophen 325 MG Tab PO PRN (09:08)
[2021-07-19] MEDS: Nicotine 14 MG/24 Hr Patch TRDERM SCH (10:49)
[2021-07-19 12:20] VITALS: BP 124/68; PULSE 89
[2021-07-19] MEDS ORDERED: LORazepam 1 MG Tab PO ONE (12:47)
[2021-07-19] MEDS ORDERED: buPROPion 150 MG Tab.SR PO ONE (12:47)
[2021-07-19] MEDS ORDERED: Gabapentin 300 MG Cap PO ONE (12:47)
[2021-07-19] MEDS ORDERED: QUEtiapine 25 MG Tab PO ONE (12:47)
[2021-07-19] MEDS ORDERED: Melatonin 3 MG Tab PO ONE (12:47)
[2021-07-19] MEDS ORDERED: buPROPion 150 MG Tab.SR ONE (13:50)
[2021-07-19] MEDS ORDERED: LORazepam 1 MG Tab ONE (13:50)
[2021-07-19] MEDS ORDERED: Melatonin 3 MG Tab ONE (13:51)
[2021-07-19] MEDS ORDERED: Gabapentin 300 MG Cap ONE (13:51)
[2021-07-19] MEDS ORDERED: QUEtiapine 25 MG Tab ONE (13:51)
[2021-07-19] MEDS ORDERED: QUEtiapine 25 MG Tab PO SCH (21:00)
== END 2021-07-19 12:48 | disposition other institution (70) ==
LOC: DL.ED 14:37 → EEVIPCON 17:27 → DL.MS 17:27 → DL.ED 17:42
PROVIDERS: ADMIT Internal Medicine; ATTEND Internal Medicine
DX: T43.592A Poisoning by other antipsychotics and neuroleptics, intentional self-harm, initial encounter (principal); G92.9 Unspecified toxic encephalopathy; E87.6 Hypokalemia; R73.9 Hyperglycemia, unspecified; E80.6 Other disorders of bilirubin metabolism; E66.9 Obesity, unspecified; Z68.34 Body mass index [BMI] 34.0-34.9, adult; F41.9 Anxiety disorder, unspecified; G89.29 Other chronic pain; M54.9 Dorsalgia, unspecified; G47.00 Insomnia, unspecified; Z20.822 Contact with and (suspected) exposure to COVID-19
CPT/HCPCS: 36415; 80048; 80053; 80143; 80179; 80305; 80307; 81001; 81025; 83605; 83735; 84100; 84443; 84484; 85025; 87635; 93005; A9270; C9113; J1200; J1885; J2060; J3411; J3475; J3480; J7030; J7120; J3490; U0002

== ENCOUNTER 2021-07-21 12:01 | Emergency (ER) | payer MEDICAID ==
[2021-07-21 12:34] VITALS: BP 126/56; PULSE 89
== END 2021-07-21 13:18 ==
LOC: DL.ED 12:01
DX: F10.231 Alcohol dependence with withdrawal delirium (principal); K21.9 Gastro-esophageal reflux disease without esophagitis; Z88.0 Allergy status to penicillin; Z79.899 Other long term (current) drug therapy
CPT/HCPCS: 99282; 99284

== ENCOUNTER 2021-07-30 11:52 | Emergency (ER) | payer MEDICAID ==
[2021-07-30 12:33] VITALS: BP 119/73; PULSE 86
[2021-07-30] MEDS ORDERED: LORazepam 1 MG Tab PO ONE (12:46)
[2021-07-30] MEDS ORDERED: Ketorolac 30 MG/ML SDV IM ONE (13:41)
== END 2021-07-30 15:50 | disposition home or self-care (01) ==
LOC: DL.ED 11:52
DX: M62.830 Muscle spasm of back (principal); K21.9 Gastro-esophageal reflux disease without esophagitis; Z88.0 Allergy status to penicillin; Z79.01 Long term (current) use of anticoagulants; Z79.899 Other long term (current) drug therapy
CPT/HCPCS: 96372; 99283; 99284; A9270-GY; J1885

== ENCOUNTER 2023-03-14 02:40 | Emergency (ER) | payer MEDICAID ==
[2023-03-14] MEDS ORDERED: Sodium Chloride 0.9% 10 ML Syringe FLUSH PRN (04:38)
[2023-03-14] MEDS ORDERED: Sodium Chloride 0.9% 1,000 ML IV SCH (04:45)
[2023-03-14 04:47] LABS: BASOPHILS PERCENT AUTO 0.2 % (0.0-1.0); EOSINOPHILS PERCENT AUTO 1.9 % (1.0-3.0); HEMATOCRIT 40.6 % (37.0-47.0); HEMOGLOBIN 13.5 g/dL (12.0-16.0); LYMPHOCYTES PERCENT AUTO 16.1 % (20.5-50.1); MEAN CORPUSCULAR HEMOGLOBIN 28.1 pg (27.0-34.0); MEAN CORPUSCULAR HGB CONC 33.3 g/dL (33.0-35.0); MEAN CORPUSCULAR VOLUME 84.6 fL (80-100); MONOCYTES PERCENT AUTO 4.8 % (2-8); PLATELET COUNT,PLT 388 10^3/uL (150-450); WHITE BLOOD CELL COUNT,WBC 12.6 10^3/uL (5.0-10.0)
[2023-03-14 04:51] LABS: APPEARANCE,URINE CLEAR (CLEAR); BILIRUBIN,URINE NEGATIVE (NEGATIVE); COLOR,URINE YELLOW (YELLOW); GLUCOSE,URINE NEGATIVE (NEGATIVE); KETONES,URINE NEGATIVE (NEGATIVE); LEUKOCYTE ESTERASE,URINE NEGATIVE (NEGATIVE); NITRITE,URINE NEGATIVE (NEGATIVE); OCCULT BLOOD,URINE NEGATIVE (NEGATIVE); PROTEIN,URINE NEGATIVE (NEGATIVE); UROBILINOGEN,URINE 0.2 mg/dL (0.2-1.0)
[2023-03-14 04:53] LABS: AMPHETAMINES,URINE NEGATIVE (NEGATIVE); BARBITURATES,URINE NEGATIVE (NEGATIVE); BENZODIAZEPINE,URINE NEGATIVE (NEGATIVE); MDMA (ECSTASY), URINE NEGATIVE (NEGATIVE); METHADONE,URINE NEGATIVE (NEGATIVE); METHAMPHETAMINES,URINE POSITIVE (NEGATIVE); OPIATES,URINE NEGATIVE (NEGATIVE); OXYCODONE,URINE NEGATIVE (NEGATIVE); PHENCYCLIDINE,URINE NEGATIVE (NEGATIVE); TCA,URINE NEGATIVE (NEGATIVE)
[2023-03-14 04:55] LABS: A/G RATIO 0.9; ALANINE AMINOTRANSFERASE,ALT 36 U/L (14-59); ALBUMIN 3.6 g/dL (3.4-5.0); ALKALINE PHOSPHATASE 101 U/L (46-116); ANION GAP 12.5 mEq/L (7-13); ASPARTATE AMNIOTRANSFERASE,AST 21 U/L (15-37); BILIRUBIN TOTAL 1.2 mg/dL (0.2-1.0); BLOOD UREA NITROGEN,BUN 4 mg/dL (7-18); CARBON DIOXIDE,CO2 29 mmol/L (21-32); CHLORIDE,CL 102 mmol/L (98-107); EST CRCL DRUG DOSING (CG) 76.54 mL/min; ESTIMATED GFR 90 mL/min (>=60); ETHANOL BLOOD MEDICAL < 3 mg/dL (0); GLUCOSE RANDOM 114 mg/dL (70-99); POTASSIUM,K 3.5 mmol/L (3.5-5.1); PROTEIN TOTAL,TP 7.5 g/dL (6.4-8.2); SODIUM,NA 140 mmol/L (136-145)
[2023-03-14 05:33] VITALS: BP 110/78; PULSE 79
== END 2023-03-14 05:39 | disposition home or self-care (01) ==
LOC: DL.ED 02:40
DX: K64.4 Residual hemorrhoidal skin tags (principal); F15.10 Other stimulant abuse, uncomplicated; K21.9 Gastro-esophageal reflux disease without esophagitis; F17.210 Nicotine dependence, cigarettes, uncomplicated; Z88.0 Allergy status to penicillin; Z79.899 Other long term (current) drug therapy; Z79.01 Long term (current) use of anticoagulants; Z90.49 Acquired absence of other specified parts of digestive tract
CPT/HCPCS: 36415; 80053; 80305; 80307; 81003; 82272; 83735; 85025; 99284; J7030; J3490

== ENCOUNTER 2023-10-31 14:22 | Emergency (ER) | payer SELFPAY ==
[2023-10-31 14:42] VITALS: BP 118/59; PULSE 86
[2023-10-31 15:58] LABS: AMPHETAMINES,URINE NEGATIVE (NEGATIVE); BARBITURATES,URINE NEGATIVE (NEGATIVE); BENZODIAZEPINE,URINE NEGATIVE (NEGATIVE); MDMA (ECSTASY), URINE NEGATIVE (NEGATIVE); METHADONE,URINE NEGATIVE (NEGATIVE); METHAMPHETAMINES,URINE NEGATIVE (NEGATIVE); OPIATES,URINE NEGATIVE (NEGATIVE); OXYCODONE,URINE NEGATIVE (NEGATIVE); PHENCYCLIDINE,URINE NEGATIVE (NEGATIVE); TCA,URINE NEGATIVE (NEGATIVE)
== END 2023-10-31 16:40 | disposition home or self-care (01) ==
LOC: DL.ED 14:22
DX: F10.120 Alcohol abuse with intoxication, uncomplicated (principal); R20.0 Anesthesia of skin; K21.9 Gastro-esophageal reflux disease without esophagitis; Z88.0 Allergy status to penicillin; Z79.01 Long term (current) use of anticoagulants; Z79.899 Other long term (current) drug therapy; Y90.9 Presence of alcohol in blood, level not specified
CPT/HCPCS: 36415; 80305-QW; 80307; 82947; 99284

== ENCOUNTER 2023-11-16 15:12 | Emergency (ER) | payer MEDICAID ==
[2023-11-16] MEDS: Ondansetron 4 MG/2 ML SDV IVPUSH ONE ×2 (15:19→19:18)
[2023-11-16] MEDS: Iopamidol 755 Mg/ML 100 ML Bottle IVPUSH ONE (15:39)
[2023-11-16 15:58] LABS: BASOPHILS PERCENT AUTO 0.3 % (0.0-1.0); EOSINOPHILS PERCENT AUTO 8.9 % (1.0-3.0); HEMATOCRIT 35.1 % (37.0-47.0); HEMOGLOBIN 10.9 g/dL (12.0-16.0); MEAN CORPUSCULAR HEMOGLOBIN 27.7 pg (27.0-34.0); MEAN CORPUSCULAR HGB CONC 31.1 g/dL (33.0-35.0); MEAN CORPUSCULAR VOLUME 89.1 fL (80-100); NEUTROPHILS PERCENT AUTO 40.8 % (42.2-75.2); PLATELET COUNT,PLT 356 10^3/uL (150-450); RED BLOOD CELL COUNT 3.94 10^6/uL (4.2-5.4); WHITE BLOOD CELL COUNT,WBC 6.6 10^3/uL (5.0-10.0)
[2023-11-16] MEDS: Sodium Chloride 0.9% 1,000 ML IV SCH (15:58)
[2023-11-16 16:18] LABS: PROTHROMBIN TIME 10.6 SEC (9.0-12.0); PTT,PARTIAL THROMBOPLSTIN TIME 23.6 SEC (22.0-34.0)
[2023-11-16 16:19] LABS: ALANINE AMINOTRANSFERASE,ALT 24 U/L (14-59); ALBUMIN 2.7 g/dL (3.4-5.0); ALKALINE PHOSPHATASE 74 U/L (46-116); ASPARTATE AMNIOTRANSFERASE,AST 18 U/L (15-37); BILIRUBIN TOTAL 0.4 mg/dL (0.2-1.0); BLOOD UREA NITROGEN,BUN 6 mg/dL (7-18); BUN/CREATININE RATIO 6.4 (No establ ref range); CALCIUM 8.1 mg/dL (8.5-10.1); CARBON DIOXIDE,CO2 32 mmol/L (21-32); CHLORIDE,CL 105 mmol/L (98-107); CREATININE 0.94 mg/dL (0.55-1.02); EST CRCL DRUG DOSING (CG) 80.03 mL/min; GLUCOSE RANDOM 125 mg/dL (70-99); SODIUM,NA 140 mmol/L (136-145)
[2023-11-16 16:21] LABS: A/G RATIO 0.82; ESTIMATED GFR 74 mL/min (>=60); ETHANOL BLOOD MEDICAL < 3 mg/dL (0)
[2023-11-16] MEDS: Ondansetron 4 MG/2 ML SDV ONE (16:36)
[2023-11-16 17:07] LABS: APPEARANCE,URINE CLEAR (CLEAR); BILIRUBIN,URINE NEGATIVE (NEGATIVE); COLOR,URINE YELLOW (YELLOW); GLUCOSE,URINE NEGATIVE (NEGATIVE); KETONES,URINE NEGATIVE (NEGATIVE); LEUKOCYTE ESTERASE,URINE NEGATIVE (NEGATIVE); NITRITE,URINE NEGATIVE (NEGATIVE); OCCULT BLOOD,URINE NEGATIVE (NEGATIVE); PH,URINE 7.5 (5.0-9.0); PROTEIN,URINE NEGATIVE (NEGATIVE); UROBILINOGEN,URINE 0.2 mg/dL (0.2-1.0)
[2023-11-16 17:15] LABS: AMORPHOUS SEDIMENT,URINE RARE /HPF (NOT SEEN); AMPHETAMINES,URINE NEGATIVE (NEGATIVE); BACTERIA,URINE RARE /HPF (0-FEW/HPF); BARBITURATES,URINE NEGATIVE (NEGATIVE); BENZODIAZEPINE,URINE NEGATIVE (NEGATIVE); EPITHELIAL CELLS,URINE FEW /HPF (NOT SEEN); MDMA (ECSTASY), URINE NEGATIVE (NEGATIVE); METHADONE,URINE NEGATIVE (NEGATIVE); METHAMPHETAMINES,URINE POSITIVE (NEGATIVE); MUCUS,URINE RARE /LPF (NOT SEEN); OPIATES,URINE NEGATIVE (NEGATIVE); OXYCODONE,URINE NEGATIVE (NEGATIVE); PHENCYCLIDINE,URINE NEGATIVE (NEGATIVE); RBC,URINE 0-5 /HPF (0-5); TCA,URINE NEGATIVE (NEGATIVE); WBC,URINE 0-5 /HPF (0-5/HPF)
[2023-11-16] MEDS: Famotidine 20 MG/2 ML SDV IVPUSH ONE (19:18)
[2023-11-16 19:47] VITALS: BP 102/60; PULSE 72
[2023-11-16] MEDS: diphenhydrAMINE 50 MG/ML SDV IVPUSH ONE (20:49)
[2023-11-16] MEDS: Metoclopramide 10 MG/2 ML SDV IVPUSH ONE (20:50)
== END 2023-11-16 20:53 ==
LOC: DL.ED 15:12
DX: G61.0 Guillain-Barre syndrome (principal); R20.2 Paresthesia of skin; F19.10 Other psychoactive substance abuse, uncomplicated; K21.9 Gastro-esophageal reflux disease without esophagitis; Z88.0 Allergy status to penicillin; Z79.01 Long term (current) use of anticoagulants; Z79.899 Other long term (current) drug therapy
CPT/HCPCS: 36415; 70450; 70496; 70498; 71045; 72125; 80053; 80305; 80307; 81001; 82947; 83605; 84703; 85025; 85610; 85730; 87635; 93005; 96361; 96374; 96375; 96376; 99285; J1200; J2405; J2765; J3490; J7030; Q9967; 93010; U0002

== ENCOUNTER 2023-12-18 14:29 | Observation (INO) | payer MEDICAID ==
[2023-12-18] MEDS ORDERED: Sodium Chloride 0.9% 10 ML Syringe FLUSH PRN (14:43)
[2023-12-18 14:55] LABS: BASOPHILS PERCENT AUTO 0.2 % (0.0-1.0); HEMATOCRIT 42.3 % (37.0-47.0); HEMOGLOBIN 13.7 g/dL (12.0-16.0); LYMPHOCYTES PERCENT AUTO 32.1 % (20.5-50.1); MEAN CORPUSCULAR HGB CONC 32.4 g/dL (33.0-35.0); MEAN CORPUSCULAR VOLUME 83.4 fL (80-100); MONOCYTES PERCENT AUTO 6.6 % (2-8); NEUTROPHILS PERCENT AUTO 58.1 % (42.2-75.2); PLATELET COUNT,PLT 374 10^3/uL (150-450); RED BLOOD CELL COUNT 5.07 10^6/uL (4.2-5.4); WHITE BLOOD CELL COUNT,WBC 9.8 10^3/uL (5.0-10.0)
[2023-12-18] MEDS: diphenhydrAMINE 50 MG/ML SDV IVPUSH ONE (14:55)
[2023-12-18 15:10] LABS: APPEARANCE,URINE CLEAR (CLEAR); BILIRUBIN,URINE NEGATIVE (NEGATIVE); COLOR,URINE YELLOW (YELLOW); GLUCOSE,URINE NEGATIVE (NEGATIVE); KETONES,URINE NEGATIVE (NEGATIVE); LEUKOCYTE ESTERASE,URINE NEGATIVE (NEGATIVE); NITRITE,URINE NEGATIVE (NEGATIVE); OCCULT BLOOD,URINE NEGATIVE (NEGATIVE); PROTEIN,URINE NEGATIVE (NEGATIVE); UROBILINOGEN,URINE 0.2 mg/dL (0.2-1.0)
[2023-12-18 15:14] LABS: AMPHETAMINES,URINE NEGATIVE (NEGATIVE); BARBITURATES,URINE NEGATIVE (NEGATIVE); BENZODIAZEPINE,URINE NEGATIVE (NEGATIVE); MDMA (ECSTASY), URINE NEGATIVE (NEGATIVE); METHADONE,URINE NEGATIVE (NEGATIVE); METHAMPHETAMINES,URINE POSITIVE (NEGATIVE); OPIATES,URINE NEGATIVE (NEGATIVE); OXYCODONE,URINE NEGATIVE (NEGATIVE); PHENCYCLIDINE,URINE NEGATIVE (NEGATIVE); TCA,URINE NEGATIVE (NEGATIVE)
[2023-12-18 15:17] LABS: ALANINE AMINOTRANSFERASE,ALT 30 U/L (14-59); ALBUMIN 3.9 g/dL (3.4-5.0); ALKALINE PHOSPHATASE 98 U/L (46-116); ANION GAP 12.7 mEq/L (7-13); ASPARTATE AMNIOTRANSFERASE,AST 18 U/L (15-37); BILIRUBIN TOTAL 1.5 mg/dL (0.2-1.0); BLOOD UREA NITROGEN,BUN 9 mg/dL (7-18); CALCIUM 9.1 mg/dL (8.5-10.1); CARBON DIOXIDE,CO2 25 mmol/L (21-32); CHLORIDE,CL 103 mmol/L (98-107); CREATINE KINASE,CK 137 U/L (16-191); EST CRCL DRUG DOSING (CG) 60.56 mL/min; GLUCOSE RANDOM 120 mg/dL (70-99); LIPASE 39 U/L (16-77); MAGNESIUM 2.1 mg/dL (1.8-2.4); PHOSPHORUS 3.6 mg/dL (2.6-4.7); POTASSIUM,K 3.7 mmol/L (3.5-5.1); PROTEIN TOTAL,TP 7.8 g/dL (6.4-8.2); SODIUM,NA 137 mmol/L (136-145)
[2023-12-18 15:22] LABS: ACETAMINOPHEN 0 ug/mL (10-30 (Therapeutic)); C-REACTIVE PROTEIN < 0.50 ng/dL (<=0.50); ESTIMATED GFR 69 mL/min (>=60); ETHANOL BLOOD MEDICAL < 3 mg/dL (0)
[2023-12-18] MEDS: Sodium Chloride 0.9% 1,000 ML IV ONE (15:35)
[2023-12-18 15:40] LABS: PROTHROMBIN TIME 10.4 SEC (9.0-12.0)
[2023-12-18 15:53] LABS: LACTIC ACID 1.5 mmol/L (0.4-2.0)
[2023-12-18 17:10] LABS: PTT,PARTIAL THROMBOPLSTIN TIME 24.5 SEC (22.0-34.0)
[2023-12-18] MEDS ORDERED: Ketorolac 30 MG/ML SDV IVPUSH PRN (21:06)
[2023-12-18] MEDS ORDERED: Magnesium Hydroxide 400 MG/5 ML Susp 30 ML Cup PO PRN (21:07)
[2023-12-18] MEDS ORDERED: Albuterol/Ipratropium 3.0-0.5 MG/3 ML Neb Soln NEB PRN (21:07)
[2023-12-18] MEDS ORDERED: Polyethylene Glycol 3350 Powder 17 GM Packet PO PRN (21:07)
[2023-12-18] MEDS ORDERED: Naloxone 2 MG/2 ML Syringe IVPUSH PRN (21:07)
[2023-12-18] MEDS ORDERED: Sennosides/Docusate Sodium 50-8.6 MG Tab PO PRN (21:07)
[2023-12-18 21:36] LABS: HEMOGLOBIN A1C 5.5 % (<5.7)
[2023-12-18] MEDS ORDERED: Flumazenil 0.1 MG/ML 5 ML MDV IVPUSH PRN (21:58)
[2023-12-18] MEDS: Gabapentin 100 MG Cap PO ONE (23:30)
[2023-12-18] MEDS: LORazepam 2 MG/ML SDV IVPUSH ONE ×2 (23:30→23:52)
[2023-12-18] MEDS: Aspirin 81 MG Tab.EC PO ONE (23:30)
[2023-12-18] MEDS: MVI, Adult with Vitamin K 10 ML, Folic Acid 1 MG, Thiamine 100 MG in Lactated Ringers 1... IV ONE (23:30)
[2023-12-18] MEDS: Gabapentin 300 MG Cap PO ONE (23:53)
[2023-12-19] MEDS: Gabapentin 300 MG Cap PO SCH (06:06)
[2023-12-19 06:44] LABS: BASOPHILS PERCENT AUTO 0.2 % (0.0-1.0); EOSINOPHILS PERCENT AUTO 4.6 % (1.0-3.0); HEMATOCRIT 39.3 % (37.0-47.0); HEMOGLOBIN 12.6 g/dL (12.0-16.0); LYMPHOCYTES PERCENT AUTO 37.3 % (20.5-50.1); MEAN CORPUSCULAR HEMOGLOBIN 27.3 pg (27.0-34.0); MEAN CORPUSCULAR HGB CONC 32.1 g/dL (33.0-35.0); MEAN CORPUSCULAR VOLUME 85.1 fL (80-100); MONOCYTES PERCENT AUTO 6.2 % (2-8); NEUTROPHILS PERCENT AUTO 51.7 % (42.2-75.2); PLATELET COUNT,PLT 369 10^3/uL (150-450); RED BLOOD CELL COUNT 4.62 10^6/uL (4.2-5.4); WHITE BLOOD CELL COUNT,WBC 9.1 10^3/uL (5.0-10.0)
[2023-12-19 07:37] LABS: ALBUMIN 3.3 g/dL (3.4-5.0); ANION GAP 9.8 mEq/L (7-13); BILIRUBIN TOTAL 1.4 mg/dL (0.2-1.0); BUN/CREATININE RATIO 7.9 (No establ ref range); CALCIUM 8.7 mg/dL (8.5-10.1); CREATININE 0.89 mg/dL (0.55-1.02); EST CRCL DRUG DOSING (CG) 65.3 mL/min; MAGNESIUM 2.3 mg/dL (1.8-2.4); POTASSIUM,K 3.8 mmol/L (3.5-5.1); PROTEIN TOTAL,TP 6.8 g/dL (6.4-8.2)
[2023-12-19 07:41] LABS: A/G RATIO 0.94
[2023-12-19] MEDS: Aspirin 81 MG Tab.Chew PO SCH (10:10)
[2023-12-19] MEDS: Enoxaparin 40 MG/0.4 ML Syringe SUBCUT SCH (10:11)
[2023-12-19] MEDS: Ondansetron 4 MG/2 ML SDV IVPUSH PRN (18:44)
[2023-12-19] MEDS: Acetaminophen/HYDROcodone 325-5 MG Tab PO PRN (18:44)
[2023-12-19] MEDS: OLANZapine 5 MG Tab PO SCH (21:04)
[2023-12-20] MEDS: HYDROmorphone 0.5 MG/0.5 ML Syringe IVPUSH PRN
[2023-12-20] MEDS: Acetaminophen 325 MG Tab PO PRN (19:57)
[2023-12-20] MEDS: Acetaminophen/Butalbital/Caffeine 325-50-40 MG Tab PO PRN (20:25)
[2023-12-20] MEDS ORDERED: Meclizine 12.5 MG Tab PO PRN (21:16)
[2023-12-20] MEDS ORDERED: Acetaminophen 500 MG Tab PO PRN (21:16)
[2023-12-20] MEDS: LORazepam 1 MG Tab PO ONE (21:22)
[2023-12-21] MEDS: Gabapentin 300 MG Cap PO SCH (08:25)
[2023-12-21] MEDS: buPROPion 150 MG Tab.SR PO SCH (08:26)
[2023-12-21 13:18] VITALS: BP 105/60; PULSE 62
== END 2023-12-21 13:15 | disposition home or self-care (01) ==
LOC: DL.ED 14:29 → DL.MS 17:29
PROVIDERS: ADMIT Internal Medicine; ATTEND Internal Medicine
DX: G24.9 Dystonia, unspecified (principal); K21.9 Gastro-esophageal reflux disease without esophagitis; F32.A Depression, unspecified; F41.9 Anxiety disorder, unspecified; J45.909 Unspecified asthma, uncomplicated; Z79.899 Other long term (current) drug therapy; Z88.0 Allergy status to penicillin
CPT/HCPCS: 36415; 70450; 70551; 80053; 80061; 80143; 80179; 80305-QW; 80307; 81003; 81025; 82140; 82550; 82607; 82947; 83036; 83605; 83690; 83735; 84100; 84145; 84484; 85025; 85610; 85730; 86140; 93005; 93306; 93880; 97161-GP; 97165-GO; A9270-GY; J1170; J1200; J1650; J2060; J2405; J3411; J3490; J7030; J7120

== ENCOUNTER 2024-01-03 16:15 | Emergency (ER) | payer MEDICAID ==
[2024-01-03 16:43] VITALS: BP 120/80; PULSE 88
[2024-01-03] MEDS: Diazepam 5 MG Tab PO ONE (16:49)
[2024-01-03 16:58] LABS: BASOPHILS PERCENT AUTO 0.3 % (0.0-1.0); EOSINOPHILS PERCENT AUTO 5.3 % (1.0-3.0); HEMATOCRIT 38.8 % (37.0-47.0); HEMOGLOBIN 12.3 g/dL (12.0-16.0); LYMPHOCYTES PERCENT AUTO 31.3 % (20.5-50.1); MEAN CORPUSCULAR HEMOGLOBIN 26.6 pg (27.0-34.0); MEAN CORPUSCULAR HGB CONC 31.7 g/dL (33.0-35.0); MEAN CORPUSCULAR VOLUME 83.8 fL (80-100); MONOCYTES PERCENT AUTO 9.3 % (2-8); NEUTROPHILS PERCENT AUTO 53.8 % (42.2-75.2); PLATELET COUNT,PLT 380 10^3/uL (150-450); RED BLOOD CELL COUNT 4.63 10^6/uL (4.2-5.4); WHITE BLOOD CELL COUNT,WBC 10.8 10^3/uL (5.0-10.0)
[2024-01-03 17:18] LABS: ALBUMIN 3.7 g/dL (3.4-5.0); ANION GAP 11.9 mEq/L (7-13); BILIRUBIN TOTAL 1.1 mg/dL (0.2-1.0); BUN/CREATININE RATIO 7.4 (No establ ref range); CREATININE 1.08 mg/dL (0.55-1.02); EST CRCL DRUG DOSING (CG) 56.08 mL/min; PHOSPHORUS 4.9 mg/dL (2.6-4.7); POTASSIUM,K 3.9 mmol/L (3.5-5.1); PROTEIN TOTAL,TP 7.4 g/dL (6.4-8.2)
== END 2024-01-03 18:25 | disposition home or self-care (01) ==
LOC: DL.ED 16:15
DX: G25.81 Restless legs syndrome (principal); J45.909 Unspecified asthma, uncomplicated; Z87.891 Personal history of nicotine dependence; Z88.0 Allergy status to penicillin
CPT/HCPCS: 36415; 70450; 80053; 83735; 84100; 85025; 99283; 99284; A9270-GY

== ENCOUNTER 2024-01-18 21:54 | Emergency (ER) | payer MEDICAID ==
[~2024-01-18 21:54] MED LIST changes: -50% Dextrose in Water 50 ML Syringe ONE; -LORazepam 2 MG/ML SDV ONE; +Sodium Chloride 0.9% 10 ML Syringe FLUSH PRN
[2024-01-18 22:09] LABS: BASOPHILS PERCENT AUTO 0.2 % (0.0-1.0); HEMATOCRIT 39.5 % (37.0-47.0); HEMOGLOBIN 12.5 g/dL (12.0-16.0); LYMPHOCYTES PERCENT AUTO 34.4 % (20.5-50.1); MEAN CORPUSCULAR HEMOGLOBIN 26.7 pg (27.0-34.0); MEAN CORPUSCULAR HGB CONC 31.6 g/dL (33.0-35.0); MEAN CORPUSCULAR VOLUME 84.2 fL (80-100); MONOCYTES PERCENT AUTO 7.4 % (2-8); PLATELET COUNT,PLT 373 10^3/uL (150-450); RED BLOOD CELL COUNT 4.69 10^6/uL (4.2-5.4); WHITE BLOOD CELL COUNT,WBC 10.7 10^3/uL (5.0-10.0)
[2024-01-18 22:17] LABS: APPEARANCE,URINE CLEAR (CLEAR); BILIRUBIN,URINE NEGATIVE (NEGATIVE); GLUCOSE,URINE NEGATIVE (NEGATIVE); KETONES,URINE NEGATIVE (NEGATIVE); LEUKOCYTE ESTERASE,URINE NEGATIVE (NEGATIVE); NITRITE,URINE NEGATIVE (NEGATIVE); OCCULT BLOOD,URINE NEGATIVE (NEGATIVE); PH,URINE 6.5 (5.0-9.0); PROTEIN,URINE NEGATIVE (NEGATIVE); UROBILINOGEN,URINE 0.2 mg/dL (0.2-1.0)
[2024-01-18 22:20] LABS: AMPHETAMINES,URINE NEGATIVE (NEGATIVE); BARBITURATES,URINE NEGATIVE (NEGATIVE); BENZODIAZEPINE,URINE NEGATIVE (NEGATIVE); COLOR,URINE LIGHT YELLOW (YELLOW); MDMA (ECSTASY), URINE NEGATIVE (NEGATIVE); METHADONE,URINE NEGATIVE (NEGATIVE); METHAMPHETAMINES,URINE NEGATIVE (NEGATIVE); OPIATES,URINE NEGATIVE (NEGATIVE); OXYCODONE,URINE NEGATIVE (NEGATIVE); PHENCYCLIDINE,URINE NEGATIVE (NEGATIVE); TCA,URINE NEGATIVE (NEGATIVE)
[2024-01-18] MEDS ORDERED: Lidocaine 2% 20 ML MDV ONE (22:20)
[2024-01-18] MEDS: Lidocaine 2% 20 ML MDV SUBCUT ONE (22:22)
[2024-01-18] MEDS: Lidocaine 2% 100 MG/5 ML Syringe ONE (22:23)
[2024-01-18 22:32] LABS: LACTIC ACID 1.4 mmol/L (0.4-2.0)
[2024-01-18 22:38] LABS: ALANINE AMINOTRANSFERASE,ALT 46 U/L (14-59); ALBUMIN 3.5 g/dL (3.4-5.0); ALKALINE PHOSPHATASE 111 U/L (46-116); ANION GAP 12.9 mEq/L (7-13); ASPARTATE AMNIOTRANSFERASE,AST 14 U/L (15-37); BILIRUBIN TOTAL 0.4 mg/dL (0.2-1.0); BLOOD UREA NITROGEN,BUN 12 mg/dL (7-18); BUN/CREATININE RATIO 12.1 (No establ ref range); C-REACTIVE PROTEIN 0.56 ng/dL (<=0.50); CALCIUM 9.1 mg/dL (8.5-10.1); CARBON DIOXIDE,CO2 29 mmol/L (21-32); CHLORIDE,CL 104 mmol/L (98-107); CREATINE KINASE,CK 99 U/L (16-191); CREATININE 0.99 mg/dL (0.55-1.02); EST CRCL DRUG DOSING (CG) 58.71 mL/min; GLUCOSE RANDOM 127 mg/dL (70-99); MAGNESIUM 1.9 mg/dL (1.8-2.4); POTASSIUM,K 3.9 mmol/L (3.5-5.1); SODIUM,NA 142 mmol/L (136-145); TSH ULTRASENSITIVE 5.48 uIU/mL (0.36-3.74)
[2024-01-18 22:40] LABS: ESTIMATED GFR 69 mL/min (>=60); ETHANOL BLOOD MEDICAL < 3 mg/dL (0)
[2024-01-18 22:46] LABS: INR 0.9 (0.9-1.2); PROTHROMBIN TIME 9.6 SEC (9.0-12.0); PTT,PARTIAL THROMBOPLSTIN TIME 23.9 SEC (22.0-34.0)
[2024-01-18] MEDS: Ketorolac 30 MG/ML SDV IVPUSH ONE (22:49)
[2024-01-18] MEDS: Sodium Chloride 0.9% 1,000 ML IV ONE (22:49)
[2024-01-18] MEDS: Metoclopramide 10 MG/2 ML SDV IVPUSH ONE (22:50)
[2024-01-18] MEDS: diphenhydrAMINE 50 MG/ML SDV IVPUSH ONE (22:50)
[2024-01-18 23:16] VITALS: BP 122/64; PULSE 80
[2024-01-18] MEDS: Take Home: Ondansetron 4 MG Tab.DIS, 5 Tab Pack PO ONE (23:32)
== END 2024-01-18 23:46 | disposition home or self-care (01) ==
LOC: DL.ED 21:54
DX: R51.9 Headache, unspecified (principal); R11.2 Nausea with vomiting, unspecified; R94.6 Abnormal results of thyroid function studies; Z86.73 Personal history of transient ischemic attack (TIA), and cerebral infarction without residual deficits; Z87.891 Personal history of nicotine dependence; Z79.01 Long term (current) use of anticoagulants; Z79.899 Other long term (current) drug therapy; Z88.0 Allergy status to penicillin
CPT/HCPCS: 36415; 80053; 80305; 80307; 81003; 81025; 82550; 83605; 83735; 84443; 85025; 85610; 85730; 86140; 96361; 96374; 96375; 99284; J1200; J1885; J2765; J7030; Q0162; J3490

== ENCOUNTER 2024-08-15 16:04 | Emergency (ER) | payer MEDICAID ==
[2024-08-15 17:03] VITALS: BP 111/69; PULSE 92
[2024-08-15] MEDS: traMADol 50 MG Tab PO ONE (17:18)
== END 2024-08-15 17:29 | disposition home or self-care (01) ==
LOC: DL.ED 16:04
DX: S62.115A Nondisplaced fracture of triquetrum [cuneiform] bone, left wrist, initial encounter for closed fracture (principal); J45.909 Unspecified asthma, uncomplicated; K21.9 Gastro-esophageal reflux disease without esophagitis; Z88.0 Allergy status to penicillin; Z79.01 Long term (current) use of anticoagulants; Z79.899 Other long term (current) drug therapy; W01.0XXA Fall on same level from slipping, tripping and stumbling without subsequent striking against object, initial encounter
CPT/HCPCS: 73110; 99284; A9270

== ENCOUNTER 2024-11-25 20:47 | Emergency (ER) | payer MEDICAID ==
[2024-11-25 21:12] VITALS: BP 125/74; PULSE 115
[2024-11-25 21:18] LABS: BASOPHILS PERCENT AUTO 0.2 % (0.0-1.0); EOSINOPHILS PERCENT AUTO 0.1 % (1.0-3.0); LYMPHOCYTES PERCENT AUTO 13.6 % (20.5-50.1); MONOCYTES PERCENT AUTO 6.9 % (2-8); NEUTROPHILS PERCENT AUTO 79.2 % (42.2-75.2); PLATELET COUNT,PLT 334 10^3/uL (150-450); RED BLOOD CELL COUNT 4.84 10^6/uL (4.2-5.4); WHITE BLOOD CELL COUNT,WBC 14.1 10^3/uL (5.0-10.0)
== END 2024-11-25 22:15 | disposition home or self-care (01) ==
LOC: DL.ED 20:47
DX: L03.116 Cellulitis of left lower limb (principal); L03.115 Cellulitis of right lower limb; Z79.899 Other long term (current) drug therapy; Z79.01 Long term (current) use of anticoagulants
CPT/HCPCS: 36415; 85025; 96372; 99283; J0696

== ENCOUNTER 2025-02-06 16:07 | Emergency (ER) | payer MEDICAID ==
[2025-02-06 16:41] LABS: BASOPHILS PERCENT AUTO 0.2 % (0.0-1.0); EOSINOPHILS PERCENT AUTO 3.0 % (1.0-3.0); LYMPHOCYTES PERCENT AUTO 34.8 % (20.5-50.1); MONOCYTES PERCENT AUTO 8.2 % (2-8); NEUTROPHILS PERCENT AUTO 53.8 % (42.2-75.2); PLATELET COUNT,PLT 465 10^3/uL (150-450); RED BLOOD CELL COUNT 5.39 10^6/uL (4.2-5.4); WHITE BLOOD CELL COUNT,WBC 11.4 10^3/uL (5.0-10.0)
[2025-02-06 16:43] LABS: APPEARANCE,URINE CLEAR (CLEAR); GLUCOSE,URINE NEGATIVE (NEGATIVE); OCCULT BLOOD,URINE NEGATIVE (NEGATIVE)
[2025-02-06 17:04] LABS: A/G RATIO 0.7; ALANINE AMINOTRANSFERASE,ALT 24.0 U/L (14-59); ASPARTATE AMNIOTRANSFERASE,AST 11.0 U/L (15-37); BILIRUBIN TOTAL 0.5 mg/dL (0.2-1.0); BLOOD UREA NITROGEN,BUN 11.0 mg/dL (7-18); CARBON DIOXIDE,CO2 33.0 mmol/L (21-32); CHLORIDE,CL 102.0 mmol/L (98-107); CREATININE 0.93 mg/dL (0.55-1.02); EST CRCL DRUG DOSING (CG) 64.4 mL/min; ESTIMATED GFR 74.0 mL/min (>=60); GLUCOSE RANDOM 97.0 mg/dL (70-99); POTASSIUM,K 4.1 mmol/L (3.5-5.1); PROTEIN TOTAL,TP 8.6 g/dL (6.4-8.2); SODIUM,NA 143.0 mmol/L (136-145)
[2025-02-06 17:07] VITALS: BP 116/77; PULSE 74
== END 2025-02-06 17:20 | disposition home or self-care (01) ==
LOC: DL.ED 16:07
DX: R05.9 Cough, unspecified (principal); K21.9 Gastro-esophageal reflux disease without esophagitis; Z88.0 Allergy status to penicillin; Z79.01 Long term (current) use of anticoagulants; Z79.899 Other long term (current) drug therapy
CPT/HCPCS: 71046; 80053; 81003; 84484; 85025; 87428-QW; 99282; 99283

== ENCOUNTER 2025-03-10 19:04 | Emergency (ER) | payer MEDICAID ==
[2025-03-10 19:55] LABS: PLATELET COUNT,PLT 453 10^3/uL (150-450); RED BLOOD CELL COUNT 4.70 10^6/uL (4.2-5.4); WHITE BLOOD CELL COUNT,WBC 16.1 10^3/uL (5.0-10.0)
[2025-03-10 19:58] LABS: BASOPHILS PERCENT AUTO 0.1 % (0.0-1.0); EOSINOPHILS PERCENT AUTO 1.2 % (1.0-3.0); LYMPHOCYTES PERCENT AUTO 12.3 % (20.5-50.1); MONOCYTES PERCENT AUTO 6.7 % (2-8); NEUTROPHILS PERCENT AUTO 79.7 % (42.2-75.2)
[2025-03-10 20:18] LABS: LACTIC ACID 1.1 mmol/L (0.4-2.0)
[2025-03-10 20:25] LABS: ALANINE AMINOTRANSFERASE,ALT 19.0 U/L (14-59); ASPARTATE AMNIOTRANSFERASE,AST 11.0 U/L (15-37); BILIRUBIN TOTAL 0.8 mg/dL (0.2-1.0); BLOOD UREA NITROGEN,BUN 6.0 mg/dL (7-18); CARBON DIOXIDE,CO2 26.0 mmol/L (21-32); CHLORIDE,CL 98.0 mmol/L (98-107); CREATININE 1.1 mg/dL (0.55-1.02); EST CRCL DRUG DOSING (CG) 52.25 mL/min; GLUCOSE RANDOM 121.0 mg/dL (70-99); POTASSIUM,K 3.3 mmol/L (3.5-5.1); PROTEIN TOTAL,TP 8.6 g/dL (6.4-8.2); SODIUM,NA 137.0 mmol/L (136-145)
[2025-03-10 20:26] LABS: A/G RATIO 0.62; ESTIMATED GFR 61.0 mL/min (>=60)
[2025-03-10 20:36] LABS: EOSINOPHILS PERCENT MAN 1 % (1-3); LYMPHOCYTES % ATYPICAL MANUAL 2 %; LYMPHOCYTES PERCENT MAN 10 % (20-50); MONOCYTES PERCENT MAN 6 % (2-8); SEG NEUTROPHILS PERCENT MAN 81 % (42-75)
[2025-03-10 22:04] VITALS: BP 158/88
[2025-03-10 22:19] VITALS: PULSE 104
[2025-03-10] MEDS: Take Home: Sulfamethoxazole/Trimethoprim 800-160 MG Tab, 6 Tab Pack PO ONE (22:30)
== END 2025-03-10 22:30 | disposition home or self-care (01) ==
LOC: DL.ED 19:04
DX: L03.115 Cellulitis of right lower limb (principal); K21.9 Gastro-esophageal reflux disease without esophagitis; F17.210 Nicotine dependence, cigarettes, uncomplicated; Z88.0 Allergy status to penicillin; Z79.01 Long term (current) use of anticoagulants; Z79.899 Other long term (current) drug therapy; W18.39XA Other fall on same level, initial encounter; Y92.009 Unspecified place in unspecified non-institutional (private) residence as the place of occurrence of the external cause
CPT/HCPCS: 36415; 73600; 80053; 83605; 85025; 96365; 96366; 99283; A9270; J3373; J3374; J7040; J7050; 99284